=== PATIENT | female | born 1985 | race Caucasian/White ===

== ENCOUNTER 2020-07-21 13:49 | Outpatient (REF) | payer OTHER, SELFPAY ==
[2020-07-22 12:30] LABS: BV Int Neg Control Negative (Negative); BV Int Pos Control Positive (Positive)
== END 2020-07-21 13:50 | disposition home or self-care (01) ==
LOC: HO.LAB 13:49
PROVIDERS: PCP Internal Medicine; Visit Provider Advanced Practice Midwife
DX: R10.2 Pelvic and perineal pain (principal); N94.10 Unspecified dyspareunia; N94.9 Unspecified condition associated with female genital organs and menstrual cycle; Z97.5 Presence of (intrauterine) contraceptive device
CPT/HCPCS: 87480; 87510; 87660

== ENCOUNTER 2020-07-26 15:31 | Outpatient (REF) | payer OTHER, SELFPAY ==
--- NOTE | 2020-07-26 15:44 | US_ITS ---
EXAMINATION: PELVIC ULTRASOUND CLINICAL INFORMATION: Pelvic and perineal pain COMPARISON: Previous pelvic ultrasound June 2018 TECHNIQUE: Transabdominal and transvaginal pelvic ultrasound was performed. Transvaginal exam was performed for better visualization of the uterus and ovaries. FINDINGS: The uterus is anteverted and measures 10.2 x 3.8 x 4.3 cm. There is an IUD in the uterus in satisfactory position. Endometrial thickness is normal estimated at 0.5 cm. No focal uterine lesion is seen. The cervix is normal appearing. The right ovary is slightly enlarged measuring 4.3 x 2.5 x 2.6 cm, volume 15 mL. There is a 2.5 x 1.6 x 2 cm simple right ovarian cyst. The left ovary is normal and measures 3.6 x 1.5 x 3 cm. There is no fluid in the pelvis. US/US transvaginal IMPRESSION: IUD in the uterus in satisfactory position. 2.5 x 1.6 x 2 cm simple right ovarian cyst.
--- NOTE | 2020-07-26 15:44 | US_ITS ---
EXAMINATION: PELVIC ULTRASOUND CLINICAL INFORMATION: Pelvic and perineal pain COMPARISON: Previous pelvic ultrasound June 2018 TECHNIQUE: Transabdominal and transvaginal pelvic ultrasound was performed. Transvaginal exam was performed for better visualization of the uterus and ovaries. FINDINGS: The uterus is anteverted and measures 10.2 x 3.8 x 4.3 cm. There is an IUD in the uterus in satisfactory position. Endometrial thickness is normal estimated at 0.5 cm. No focal uterine lesion is seen. The cervix is normal appearing. The right ovary is slightly enlarged measuring 4.3 x 2.5 x 2.6 cm, volume 15 mL. There is a 2.5 x 1.6 x 2 cm simple right ovarian cyst. The left ovary is normal and measures 3.6 x 1.5 x 3 cm. There is no fluid in the pelvis. US/US pelvic complete IMPRESSION: IUD in the uterus in satisfactory position. 2.5 x 1.6 x 2 cm simple right ovarian cyst.
== END 2020-07-26 15:32 | disposition home or self-care (01) ==
LOC: HO.US 15:31
PROVIDERS: PCP Internal Medicine; Visit Provider Advanced Practice Midwife
DX: R10.2 Pelvic and perineal pain (principal); R10.12 Left upper quadrant pain
CPT/HCPCS: 76830; 76856

== ENCOUNTER → 2020-08-02 10:01 | Outpatient (BNVA) | payer OTHER, SELFPAY | PROVIDERS: Visit Provider Advanced Practice Midwife | DX: Z76.89 Persons encountering health services in other specified circumstances (principal) ==

== ENCOUNTER → 2020-12-20 15:55 | Outpatient (BNVA) | payer OTHER, SELFPAY | PROVIDERS: PCP Internal Medicine; Visit Provider Advanced Practice Midwife ==

== ENCOUNTER 2021-06-28 09:23 | Outpatient (REF) | payer OTHER, SELFPAY ==
[2021-06-28 15:46] LABS: CT PCR NOT DETECTED (Not Detect.); NG PCR NOT DETECTED (Not Detect.)
[2021-06-29 09:29] LABS: BV Int Neg Control Negative (Negative); BV Int Pos Control Positive (Positive)
[2021-07-03 15:56] LABS: HPV mRNA E6/E7 rflx Not Detected (Not Detected)
== END 2021-06-28 09:24 | disposition home or self-care (01) ==
LOC: HO.LAB 09:23
PROVIDERS: PCP Internal Medicine; Visit Provider Advanced Practice Midwife
DX: Z01.411 Encounter for gynecological examination (general) (routine) with abnormal findings (principal); Z11.51 Encounter for screening for human papillomavirus (HPV); N94.10 Unspecified dyspareunia; R10.2 Pelvic and perineal pain; N89.8 Other specified noninflammatory disorders of vagina
CPT/HCPCS: 81003; 87480; 87491; 87510; 87591; 87624; 87660; 88142

== ENCOUNTER 2021-07-16 12:54 | Outpatient (REF) | payer OTHER, SELFPAY ==
--- NOTE | ~2021-07-16 | US_ITS ---
EXAMINATION: US PELVIS CLINICAL INFORMATION: Pelvic/perineal pain. COMPARISON: Pelvic ultrasound dated 07/18/2020. TECHNIQUE: Ultrasound of the pelvis is performed using both transabdominal and transvaginal transducers along with Doppler. Transvaginal imaging is performed due to inadequate visualization transabdominally. FINDINGS: Uterus: Anteverted/anteflexed measuring 9.0 x 3.6 x 4.7 cm. The endometrial stripe measures up to 0.3 cm at the level the fundus. An echogenic IUD is seen within the endometrial canal extending to the level the fundus without abnormality. A small anechoic cyst adjacent to the IUD on the right measures 0.5 x 0.4 x 0.4 cm. Color Doppler showed no abnormal vascular flow. The cervix is closed minimal anechoic fluid distally towards the external os. A small nabothian cyst is noted. Right ovary: 3.3 x 2.2 x 2.5 cm with a volume of 10 mL. Color Doppler showed no abnormal vascular flow. Left ovary: 4.5 x 3.1 x 4.2 cm with a volume of 31 mL. An anechoic cyst measures 3.2 cm. Color Doppler showed no abnormal vascular flow. US/US pelvic and transvaginal IMPRESSION: 1. IUD appears in good position without abnormality. A small adjacent anechoic cyst is nonspecific, but demonstrates benign features and may be physiologic. Correlation with beta-hCG levels recommended as an early gestational sac cannot be completely excluded. 2. Small left ovarian cyst demonstrates overall benign features and is likely physiologic.
== END 2021-07-16 12:55 | disposition home or self-care (01) ==
LOC: HO.US 12:54
PROVIDERS: PCP Internal Medicine; Visit Provider Advanced Practice Midwife
DX: R10.2 Pelvic and perineal pain (principal); G89.29 Other chronic pain
CPT/HCPCS: 76830; 76856

== ENCOUNTER 2021-07-17 12:53 | Outpatient (REF) | payer OTHER, SELFPAY ==
[2021-07-17 14:02] LABS: HCG Quantitative < 2 mIU/mL
== END 2021-07-17 12:54 | disposition home or self-care (01) ==
LOC: HO.LAB 12:53
PROVIDERS: PCP Internal Medicine; Visit Provider Advanced Practice Midwife
DX: N85.8 Other specified noninflammatory disorders of uterus (principal)
CPT/HCPCS: 36415; 84702

== ENCOUNTER 2021-07-23 08:19 | Outpatient (REF) | payer OTHER, SELFPAY ==
--- NOTE | ~2021-07-23 | MM_ITS ---
EXAMINATION: MM SCREENING DIGITAL BREAST TOMOSYNTHESIS, BILATERAL CLINICAL INFORMATION: Screening. Asymptomatic. Age 35. No prior breast imaging. Prior history right lateral breast reduction surgery. Family history breast cancer, mother age 30s. The lifetime risk of breast cancer based on the Tyrer-Cuzick Model is 15%. COMPARISON: None (current study represents initial baseline exam). TECHNIQUE: Digital breast tomosynthesis is performed in both the craniocaudal and mediolateral oblique views along with computer-aided detection (CAD). Synthesized 2D images are generated from the tomosynthesis. FINDINGS: There are scattered areas of fibroglandular density (ACR BI-RADS breast composition Category b). Parenchymal pattern is consistent with the history of bilateral reduction mammoplasty. There is minor bilateral scarring with scattered benign round calcifications bilaterally anterior breasts, many likely dermal. There is no mass or architectural abnormality or abnormal calcifications. The axilla are unremarkable. MM/MM tomosynthesis screening BI IMPRESSION: No mammographic evidence of malignancy. ASSESSMENT: BI-RADS 2: Benign RECOMMENDATION: Routine annual mammography screening. This patient's information was entered into a reminder system with a target due date for their next mammogram.
== END 2021-07-23 08:20 | disposition home or self-care (01) ==
LOC: HO.MAMMO 08:19
PROVIDERS: PCP Internal Medicine; Visit Provider Obstetrics & Gynecology
DX: Z12.31 Encounter for screening mammogram for malignant neoplasm of breast (principal)
CPT/HCPCS: 77063; 77067

== ENCOUNTER → 2021-07-24 15:35 | Outpatient (BNVA) | payer OTHER, SELFPAY | PROVIDERS: Visit Provider Advanced Practice Midwife ==

== ENCOUNTER → 2021-07-25 08:36 | Outpatient (BNVA) | payer OTHER, SELFPAY | PROVIDERS: PCP Internal Medicine; Visit Provider Obstetrics & Gynecology ==

== ENCOUNTER 2022-07-24 09:20 | Outpatient (REF) | payer OTHER, SELFPAY ==
--- NOTE | ~2022-07-24 | MM_ITS ---
EXAMINATION: MM SCREENING DIGITAL BREAST TOMOSYNTHESIS, BILATERAL CLINICAL INFORMATION: Screening. Asymptomatic. Prior history reduction mammoplasty. Family history premenopausal breast cancer, mother, age 30s; ovarian cancer, sister. The lifetime risk of breast cancer based on the Tyrer-Cuzick Model is 20%. COMPARISON: Mammography: 07/23/2021 (baseline) TECHNIQUE: Digital breast tomosynthesis is performed in both the craniocaudal and mediolateral oblique views along with computer-aided detection (CAD). Synthesized 2D images are generated from the tomosynthesis. FINDINGS: There are scattered areas of fibroglandular density (ACR BI-RADS breast composition Category b). There are no significant masses, abnormal calcifications, or other abnormalities. Parenchymal pattern is similar to baseline exam. Again, there are some scattered benign round calcifications and dermal calcifications predominantly anterior breasts. The axilla and skin contours are unremarkable. No significant changes. MM/MM tomosynthesis screening BI IMPRESSION: No mammographic evidence of malignancy. ASSESSMENT: BI-RADS 2: Benign RECOMMENDATION: Routine annual mammography screening. This patient's information was entered into a reminder system with a target due date for their next mammogram.
== END 2022-07-24 09:21 | disposition home or self-care (01) ==
LOC: HO.MAMMO 09:20
PROVIDERS: Visit Provider Obstetrics & Gynecology
DX: Z12.31 Encounter for screening mammogram for malignant neoplasm of breast (principal)
CPT/HCPCS: 77063; 77067

== ENCOUNTER 2022-11-06 13:28 | Outpatient (REF) | payer OTHER, SELFPAY ==
--- NOTE | ~2022-11-06 | US_ITS ---
EXAMINATION: US PELVIS CLINICAL INFORMATION: Pelvic and perineal pain, IUD check. COMPARISON: Ultrasound of the pelvis 07/16/2021. TECHNIQUE: Ultrasound of the pelvis is performed using both transabdominal and transvaginal transducers along with Doppler. Transvaginal imaging is performed due to inadequate visualization transabdominally. FINDINGS: UTERUS: The uterus is anteverted and measures 9.7 x 3.9 x 4.0 cm. The double wall endometrial thickness is 0.3 mm. An IUD is present in the correct position. There is a small 5 x 5 x 4 mm cyst seen in, or immediately adjacent to, the endometrial cavity. An identical finding was seen on the 07/16/2021 study. No solid masses are seen. Nabothian cysts are present in the cervix. The uterus is smooth in contour and has normal myometrial echogenicity. No visible fibroid. ADNEXA: Both ovaries are visualized. There is normal color flow to the adnexa. There is no ovarian torsion. There is no pelvic ascites or fluid collection. Right ovary measures: 2.4 x 1.7 x 2.2 cm for a volume of 4.7 mL. Left ovary measures: 5.0 x 3.2 x 2.8 cm for a volume of 23.5 mL, which includes a 3.5 x 2.1 x 2.4 cm benign simple cyst. A follow-up pelvic ultrasound in 3 months is recommended for further evaluation. US/US pelvic and transvaginal IMPRESSION: 1. An IUD is present and in the correct position. 2. There is a 5 mm cyst in the endometrium, or adjacent to the endometrium, unchanged from 07/16/2021. 3. Benign simple left ovarian cyst needs no further follow up.
== END 2022-11-06 13:29 | disposition home or self-care (01) ==
LOC: HO.US 13:28
PROVIDERS: Visit Provider Advanced Practice Midwife
DX: R10.2 Pelvic and perineal pain (principal)
CPT/HCPCS: 76830; 76856

== ENCOUNTER → 2022-11-14 15:41 | Outpatient (BNVA) | payer OTHER, SELFPAY | PROVIDERS: PCP Internal Medicine; Visit Provider Advanced Practice Midwife | DX: Z13.89 Encounter for screening for other disorder (principal) ==

== ENCOUNTER 2023-07-28 10:26 | Outpatient (REF) | payer OTHER, SELFPAY | END 2023-07-28 10:27 | disposition home or self-care (01) | LOC: HO.MAMMO 10:26 | PROVIDERS: PCP Internal Medicine; Visit Provider Internal Medicine | DX: Z12.31 Encounter for screening mammogram for malignant neoplasm of breast (principal) | CPT/HCPCS: 77063; 77067 ==

== ENCOUNTER → 2023-07-28 10:30 | Outpatient (BNV) | payer OTHER, SELFPAY | PROVIDERS: PCP Internal Medicine; Visit Provider Radiology Diagnostic Radiology | DX: Z12.31 Encounter for screening mammogram for malignant neoplasm of breast (principal) | CPT/HCPCS: 77063; 77067 ==

== ENCOUNTER 2023-09-25 11:09 | Outpatient (REF) | payer OTHER, SELFPAY ==
[2023-09-26 15:23] LABS: BV Int Neg Control Negative (Negative); BV Int Pos Control Positive (Positive)
== END 2023-09-25 11:10 | disposition home or self-care (01) ==
LOC: HO.LNP 11:09
PROVIDERS: PCP Internal Medicine; Visit Provider Advanced Practice Midwife
DX: N89.8 Other specified noninflammatory disorders of vagina (principal)
CPT/HCPCS: 87480; 87510; 87660

== ENCOUNTER 2023-09-25 11:09 | Outpatient (AMB) | payer OTHER, SELFPAY ==
--- NOTE | 2023-09-25 11:16 | A.OFFVIS_ITS ---
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 Doing well with no concerns. She tries to eat healthy and stays active with exercise. No regular menses with the Mirena. Inserted at [facility], uncertain of date of insertion, used for cycle control. Currently is sexually active. She denies vaginal itching and irritation. History of sensitivity of the skin has tried different products currently using Andreina daily to help with her sensitivity. 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 STI screening offered; she declined. Family history of female cancer, declines interest in BRCA testing. Last pap smear 2020, negative. 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 Sexual orientation: Straight/Heterosexual Gender identity: Female Female Reproductive History Menstrual Age of Menarche: 10 control method: progestin IUCD and other (vasectomy) Total pregnancies: 4 Number of Living Children: 3 Date of last pap smear: 06/28/21 Review of Systems Const All systems reviewed & are unremarkable except as noted in HPI and below Reports as per HPI Eyes Reports no additional complaints ENT Reports no additional complaints Card Reports no additional complaints Resp Reports no additional complaints GI Reports as per HPI and Reports no additional complaints Reports as per HPI Musc Reports no additional complaints Skin/Breast Reports as per HPI Neuro Reports no additional complaints Psych Reports no additional complaints Endo Reports no additional complaints Vahid/Lymph Reports no additional complaints Aller/Immun Reports no additional complaints Physical Exam Vital Signs: Last Vital Signs BP 108/62 09/25/23 11:20 BMI result Body Mass Index 36.4 Const General: cooperative, healthy appearing, no acute distress, well developed and alert Orientation/consciousness: patient oriented x3 HEENT Head: Yes normal to inspection Eyes General: appearance normal, both eyes and all related structures Neck Neck: Yes normal visual inspection Thyroid: Thyroid normal Chest Chest palpation & inspection: normal inspection of the chest and other (no puckering, dimpling, peau de orange, retraction, discharge, masses) Breast/axilla inspection: normal inspection of the breasts Breast/axilla palpation: normal palpation of the breasts Resp Effort & Inspection: normal respiratory effort GI Inspection: Yes normal to inspection Palpation (GI): Soft to palpation Rectal Exam - Female: deferred General: Yes bladder normal to palpation External Female Exam: normal external appearance and normal appearance of the urethra Speculum Exam - Vagina: normal appearance of the vagina, normal palpation and normal vaginal discharge Speculum Exam - Cervix: normal appearance of the cervix, normal palpation and Other cervical findings present (IUD strings present ) Bimanual exam- vagina & uterus: normal bimanual exam, normal palpation, uterine size normal, bladder normal to palpation, normal palpation and non-tender Bimanual Exam- Adnexa, other: no masses Skin General skin exam: no rashes or lesions noted Rashes: no rashes Neuro General: patient oriented x3 Cognition (Neuro): normal cognition Extrem General: Yes normal to inspection Psych Attitude: cooperative Thought process: Normal thought process present Assessment & Plan Assessment & Plan (1) Encounter for well woman exam with routine gynecological exam: Code(s): Z01.419 - Encounter for gynecological examination (general) (routine) without abnormal findings Plan Discussed: Current recommendations for pap smears per ASCCP guidelines. Breast awareness and periodic breast exams. Maintain a healthy lifestyle including a well balanced diet and routine exercise. Release of records to [facility] for nitroglycerin supervisor notes. Different products for skin care such as baby soap unscented an organic all natural. Yearly mammograms due to family history. All of her questions and concerns were addressed to the best of my ability. RTO in one year for annual nitroglycerin supervisor examination. This note is constructed using voice recognition software. While every effort has been made to ensure accuracy, assistant import manager errors may have been included. Orders: Orders Bacterial Vaginosis Panel Today N89.8 - Other specified noninflammatory disorders of vagina Coding Level of Care Code Est Pt Prev Care 18-39y(70538) Diagnoses Encounter for well woman exam with routine gynecological exam Z01.419
[2023-09-25 11:20] VITALS: BP 108/62; BMI 36.4
== END 2023-09-25 11:50 | disposition home or self-care (01) ==
PROVIDERS: PCP Internal Medicine; Visit Provider Advanced Practice Midwife
DX: Z01.419 Encounter for gynecological examination (general) (routine) without abnormal findings (principal)
CPT/HCPCS: 99395

== ENCOUNTER → 2024-08-02 09:30 | Outpatient (BNV) | payer OTHER, SELFPAY | PROVIDERS: PCP Internal Medicine; Visit Provider Internal Medicine | DX: Z12.31 Encounter for screening mammogram for malignant neoplasm of breast (principal) | CPT/HCPCS: 77063; 77067 ==

== ENCOUNTER 2024-08-02 09:32 | Outpatient (REF) | payer OTHER, SELFPAY ==
--- NOTE | ~2024-08-02 | MM_ITS ---
EXAMINATION: MM SCREENING DIGITAL BREAST TOMOSYNTHESIS, BILATERAL CLINICAL INFORMATION: Screening. Asymptomatic. COMPARISON: Mammography: Comparison is made with available priors TECHNIQUE: Digital breast mammography with tomosynthesis is performed in both the craniocaudal and mediolateral oblique views along with computer-aided detection (CAD). FINDINGS: The breasts are heterogeneously dense, which may obscure small masses (ACR BI-RADS breast composition Category c). Bilateral reduction mammoplasty. There are no significant masses, abnormal calcifications, or other abnormalities. MM/MM tomosynthesis screening BI IMPRESSION: No mammographic evidence of malignancy. ASSESSMENT: BI-RADS BI-RADS 2 - Benign Findings RECOMMENDATION: Routine annual mammography screening. 1 year F/U This examination should not preclude the clinical evaluation of a suspicious palpable abnormality. This patient's information was entered into a reminder system with a target due date for their next mammogram. Electronically signed by: Joy St DO 08/10/2024 10:37 AM TIMOTHY
== END 2024-08-02 09:33 | disposition home or self-care (01) ==
LOC: HO.MAMMO 09:32
PROVIDERS: PCP Internal Medicine; Visit Provider Internal Medicine
DX: Z12.31 Encounter for screening mammogram for malignant neoplasm of breast (principal)
CPT/HCPCS: 77063; 77067

== ENCOUNTER 2024-10-06 10:10 | Outpatient (AMB) | payer OTHER, SELFPAY ==
--- NOTE | 2024-10-06 10:11 | A.OFFVIS_ITS ---
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 Doing well with board layer concerns. Mirena IUD in place since to 2016 due for an exchange this summer. Currently is sexually active. She denies vaginal itching and irritation. STI screening offered; she declined. She tries to eat healthy and stays active with exercise. Currently taking weight loss medication. Denies family history of breast, ovarian or colon cancer. Last pap smear 2020, negative. Mammogram: 2023. 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 Sexual orientation: Straight/Heterosexual Gender identity: Female Female Reproductive History Menstrual Age of Menarche: 10 control method: progestin IUCD (Mirena 04/15/17) and other (vasectomy) Total pregnancies: 4 Full term: 3 Number of Living Children: 3 Date of last pap smear: 06/28/21 (neg pap and hpv) Date of Mammogram: 08/02/24 (Bir[facility] 1) Review of Systems Const All systems reviewed & are unremarkable except as noted in HPI and below Reports as per HPI Eyes Reports no additional complaints ENT Reports no additional complaints Card Reports no additional complaints Resp Reports no additional complaints GI Reports as per HPI and Reports no additional complaints Reports as per HPI Musc Reports no additional complaints Skin/Breast Reports as per HPI Neuro Reports no additional complaints Psych Reports no additional complaints Endo Reports no additional complaints Vahid/Lymph Reports no additional complaints Aller/Immun Reports no additional complaints Physical Exam Vital Signs: Last Vital Signs BP 100/66 10/06/24 10:13 BMI result Body Mass Index 35.0 Const General: cooperative, healthy appearing, no acute distress, well developed and alert Orientation/consciousness: patient oriented x3 HEENT Head: Yes normal to inspection Eyes General: appearance normal, both eyes and all related structures Neck Neck: Yes normal visual inspection Thyroid: Thyroid normal Chest Other: Breast reconstruction scarring Chest palpation & inspection: normal inspection of the chest and other (no puckering, dimpling, peau de orange, retraction, discharge, masses) Breast/axilla inspection: normal inspection of the breasts Breast/axilla palpation: normal palpation of the breasts Resp Effort & Inspection: normal respiratory effort GI Inspection: Yes normal to inspection and Yes scar Palpation (GI): Soft to palpation Rectal Exam - Female: deferred General: Yes bladder normal to palpation External Female Exam: normal external appearance and normal appearance of the urethra Speculum Exam - Vagina: normal appearance of the vagina, normal palpation and normal vaginal discharge Speculum Exam - Cervix: normal appearance of the cervix, normal palpation and Other cervical findings present (IUD strings at the os) Bimanual exam- vagina & uterus: normal bimanual exam, normal palpation, uterine size normal, bladder normal to palpation, normal palpation, non-tender and enlarged Bimanual Exam- Adnexa, other: no masses Skin General skin exam: no rashes or lesions noted Rashes: no rashes Neuro General: patient oriented x3 Cognition (Neuro): normal cognition Extrem General: Yes normal to inspection Psych Attitude: cooperative Thought process: Normal thought process present Assessment & Plan Assessment & Plan (1) Encounter for well woman exam with routine gynecological exam: Code(s): Z01.419 - Encounter for gynecological examination (general) (routine) without abnormal findings Category: Medical (2) Encounter for annual routine gynecological examination: Code(s): Z01.419 - Encounter for gynecological examination (general) (routine) without abnormal findings Category: Medical (3) FH: breast cancer in first degree relative: Code(s): Z80.3 - Family history of malignant neoplasm of breast Category: Medical Plan Discussed: Current recommendations for pap smears per ASCCP guidelines. Breast awareness and periodic breast exams. Mammogram yearly. Maintain a healthy lifestyle including a well balanced diet and routine exercise. Schedule Mirena exchange in February per patient request on time line. Discussed risk factors for breast cancer she would like to proceed with BRCA testing. Referral placed. Patient verbalizes understanding and agrees to the plan of care. She was given opportunity to ask questions and all questions were answered to the best of my ability. RTO in one year for annual board layer examination. This note is constructed using voice recognition software. While every effort has been made to ensure accuracy, lens blank gauger errors may have been included. Orders: Referrals Breast Surgery Referral Z80.3 - Family history of malignant neoplasm of breast Coding Level of Care Code Est Pt Prev Care 40-64y(55262) Diagnoses Encounter for well woman exam with routine gynecological exam Z01.419 Encounter for annual routine gynecological examination Z01.419 FH: breast cancer in first degree relative Z80.3
[2024-10-06 10:13] VITALS: BP 100/66; BMI 35.0
--- OUTSIDE RECORDS SUMMARY | 2024-10-06 10:25 | XMS_ITS ---
Author Organization [facility] Address [address] [place] [address] Care Team Providers Care Teacher Of The Emotionally Disturbed Name Role Phone EDITH, ROSY Unavailable [phone] REASON FOR VISIT Zepbound PA Encounters Encounter Location Date Provider Diagnosis [facility] [address] [place] [address] 09/30/2024 ROSY SHARMA PLAN OF TREATMENT Next Appt Details Provider Name:ROSY SHARMA, 11/08/2024 10:45:00 AM, [address], [place], [address], Progress Notes * Colton HERNÁNDEZOB:1985 (39 yo F)Acc No.[id number]:09/30/2024 Patient:??JONELJorgelore :1985?Age:39 Y?Sex:Fe male Address:[address] [place] [id number] * true * Date:??
--- OUTSIDE RECORDS SUMMARY | 2024-10-06 10:25 | XMS_ITS ---
Author Organization [facility] Address [address] [place] [address] Care Team Providers Care Dba Developer Name Role Phone ROSY SHARMA Unavailable [phone] ALLERGIES Allergen (clinical drug ingredient) Drug/Non Drug Allergy documented on EMR Reaction Allergy Type Onset Date Status Seafood seafood (uncoded) hives Allergy Ac tive REASON FOR VISIT pt is here for 8 week weight management f/u-seca done pt states she is having horrible diarrhea andstomach pain on wegovy 1.7 pt would to discuss going back down to 1mg MEDICATIONS Medication SIG (Take, Route, Frequency, Duration) Notes Start Date End Date Status Zepbound 5 MG/0.5ML 0.5 mL Subcutaneous weekly for 30 days 09/30/2024 Active Ondansetron HCl 4 MG 1 tablet Orally twi ce a day for 10 days 08/10/2024 Active Wegovy 1.7 MG/0.75ML 0.75 mL Subcutaneou s weekly for 30 days 08/10/2024 Active Mirena (52 MG) 20 MCG/DAY as directed Intrauterine OBGYN 2020 [employer] [facility] SOCIAL HISTORY Tobacco Use: Social History Observation Description Date Details (start date - stop date) Never Smoker NA - NA Sex Assigned At : Social History Observation Description Sex Assigned At Unknown Tobacco Use/Smoking Question Answer Notes Are you a nonsmoker VITAL SIGNS Heart Rate 104 /min 09/30/2024 Blood pressure systolic 116 mm Hg 09/30/19 25 Blood pressure diastolic 80 mm Hg 025 Weight 204.4 lbs 09/30/2024 BMI 35.08 kg/m2 09/30/2024 Height 64 in 09/30/2024 Oximetry 95 % 09/30/2024 Encounters Encounter Location Date Provider Diagnosis [facility] [address] [place] [address] 09/30/2024 ROSY SHARMA Obesity (BMI 30-39.9 ) E66.9 ; BMI 35.0-35.9,adult Z68.35 and Prediabetes R73.03 ASSESSMENTS Encounter Date Diagnosis Assessment Notes Treatment Notes Treatment Clinical Notes Section Notes 09/30/2024 Obesity (BMI 30-39.9) (ICD-10 - E66.9) 02/18/2023: weight 214.2 lbs, BMI 36.76-- Bassam is a 37 year old female following up for weight management. She was previously denied Ozempic but is still interested in adjunctive therapy so will prescribe for Wegovy 0.25mg. If she is denied this medication, she is also interested in phentermine after education, and she has already been screened with EKG last visit which was WNL. Her lifestyle modifcations were reviewed, and most aspects have been challenging due to increased stress at work. She was encouraged to find ways to make time for herself and try to decrease stress as the main goal of this next month. Her SECA results showed good progress in losing fat mass and visceral adipose tissue, and she had no questions with explanation of results. She will follow up in 4 weeks. 04/27/24: BMI 37, Weight 216. Redisucssed protein intake, water intake, life style changes. Body composition scale was reviewed at [facility]. Labs will need to be ordered. 06/15/23: BMI 37 Weight 216. Completed Wegovy 0.25 mg x 8 weeks. Increase to Wegovy 0.5 mg subcu weekly. Gained 2 lb of muscle, lost 2 lb of fat. 07/13/24: Wt: 209.1 lbs, BMI: 35.89 Patient currently on Wegovy 0.5 mg injections. States that she does have an improvement in appetite suppression, but still gets hungry at times. Denies any other side effects. States that she has been eating well-balanced meals including high-protein and limiting carbs such as rice and beans. Discussed SECA scan results including 1 lbs muscle gain as well as 7 lbs fat loss. States for exercise she has increased activity by walking daily. Plan to increase Wegovy to 1 mg injections weekly to inadequate appetite suppression. 08/10/24: BMI 36, Weight 209. Increase to Wegovy 1.7 mg subcu weekly. Diet discussed as well as resistance training, 09/30/24: BMI 35, Weight 204. Having significant GI side effects with diarrhea. Discussed options of attempting to lower dose back to Wegovy 1 mg or attempt change to Zepbound due to less s/e profile. Will attempt to change to Zepbound. Pt to stop Wegocy until we can obtain PA for Zepbound. BRAT diet. Imodium. COnsider labs if no improvement on Zepbound, including stool study, Case discussed with collaborating physician Isma who reviewed the assessment and plan. Chart, medications, labs, vital signs reviewed. Dictation was accomplished with the use of [employer] voice recognition software, prone to medical misidentifications and grammatical errors. This is unintentional and the practitioner does try to identify and correct these, but some could still be present. Please do not hesitate to contact practitioner for clarification. All questions answered to patients satisfaction. Patient verbalized understanding of diagnosis and treatments explained. To call sooner prior to next visit it any questions/concerns arise. 09/30/2024 BMI 35.0-35.9,adul t (ICD-10 - Z68.35) 02/18/2023: weight 214.2 lbs, BMI 36.76-- Bassam is a 37 year old female following up for weight management. She was previously denied Ozempic but is still interested in adjunctive therapy so will prescribe for Wegovy 0.25mg. If she is denied this medication, she is also interested in phentermine after education, and she has already been screened with EKG last visit which was WNL. Her lifestyle modifcations were reviewed, and most aspects have been challenging due to increased stress at work. She was encouraged to find ways to make time for herself and try to decrease stress as the main goal of this next month. Her SECA results showed good progress in losing fat mass and visceral adipose tissue, and she had no questions with explanation of results. She will follow up in 4 weeks. 04/27/24: BMI 37, Weight 216. Redisucssed protein intake, water intake, life style changes. Body composition scale was reviewed at [facility]. Labs will need to be ordered. 06/15/23: BMI 37 Weight 216. Completed Wegovy 0.25 mg x 8 weeks. Increase to Wegovy 0.5 mg subcu weekly. Gained 2 lb of muscle, lost 2 lb of fat. 07/13/24: Wt: 209.1 lbs, BMI: 35.89 Patient currently on Wegovy 0.5 mg injections. States that she does have an improvement in appetite suppression, but still gets hungry at times. Denies any other side effects. States that she has been eating well-balanced meals including high-protein and limiting carbs such as rice and beans. Discussed SECA scan results including 1 lbs muscle gain as well as 7 lbs fat loss. States for exercise she has increased activity by walking daily. Plan to increase Wegovy to 1 mg injections weekly to inadequate appetite suppression. 08/10/24: BMI 36, Weight 209. Increase to Wegovy 1.7 mg subcu weekly. Diet discussed as well as resistance training, 09/30/24: BMI 35, Weight 204. Having significant GI side effects with diarrhea. Discussed options of attempting to lower dose back to Wegovy 1 mg or attempt change to Zepbound due to less s/e profile. Will attempt to change to Zepbound. Pt to stop Wegocy until we can obtain PA for Zepbound. BRAT diet. Imodium. COnsider labs if no improvement on Zepbound, including stool study, Case discussed with collaborating physician Isma who reviewed the assessment and plan. Chart, medications, labs, vital signs reviewed. Dictation was accomplished with the use of [employer] voice recognition software, prone to medical misidentifications and grammatical errors. This is unintentional and the practitioner does try to identify and correct these, but some could still be present. Please do not hesitate to contact practitioner for clarification. All questions answered to patients satisfaction. Patient verbalized understanding of diagnosis and treatments explained. To call sooner prior to next visit it any questions/concerns arise. 09/30/2024 Prediabetes (ICD-10 - R73.03) 02/18/2023: weight 214.2 lbs, BMI 36.76-- Bassam is a 37 year old female following up for weight management. She was previously denied Ozempic but is still interested in adjunctive therapy so will prescribe for Wegovy 0.25mg. If she is denied this medication, she is also interested in phentermine after education, and she has already been screened with EKG last visit which was WNL. Her lifestyle modifcations were reviewed, and most aspects have been challenging due to increased stress at work. She was encouraged to find ways to make time for herself and try to decrease stress as the main goal of this next month. Her SECA results showed good progress in losing fat mass and visceral adipose tissue, and she had no questions with explanation of results. She will follow up in 4 weeks. 04/27/24: BMI 37, Weight 216. Redisucssed protein intake, water intake, life style changes. Body composition scale was reviewed at [facility]. Labs will need to be ordered. 06/15/23: BMI 37 Weight 216. Completed Wegovy 0.25 mg x 8 weeks. Increase to Wegovy 0.5 mg subcu weekly. Gained 2 lb of muscle, lost 2 lb of fat. 07/13/24: Wt: 209.1 lbs, BMI: 35.89 Patient currently on Wegovy 0.5 mg injections. States that she does have an improvement in appetite suppression, but still gets hungry at times. Denies any other side effects. States that she has been eating well-balanced meals including high-protein and limiting carbs such as rice and beans. Discussed SECA scan results including 1 lbs muscle gain as well as 7 lbs fat loss. States for exercise she has increased activity by walking daily. Plan to increase Wegovy to 1 mg injections weekly to inadequate appetite suppression. 08/10/24: BMI 36, Weight 209. Increase to Wegovy 1.7 mg subcu weekly. Diet discussed as well as resistance training, 09/30/24: BMI 35, Weight 204. Having significant GI side effects with diarrhea. Discussed options of attempting to lower dose back to Wegovy 1 mg or attempt change to Zepbound due to less s/e profile. Will attempt to change to Zepbound. Pt to stop Wegocy until we can obtain PA for Zepbound. BRAT diet. Imodium. COnsider labs if no improvement on Zepbound, including stool study, Case discussed with collaborating physician Isma who reviewed the assessment and plan. Chart, medications, labs, vital signs reviewed. Dictation was accomplished with the use of [employer] voice recognition software, prone to medical misidentifications and grammatical errors. This is unintentional and the practitioner does try to identify and correct these, but some could still be present. Please do not hesitate to contact practitioner for clarification. All questions answered to patients satisfaction. Patient verbalized understanding of diagnosis and treatments explained. To call sooner prior to next visit it any questions/concerns arise. PLAN OF TREATMENT Medication Medication Name Sig Start Date Stop Date Notes Zepbound 5 MG/0.5ML 0.5 mL Subcutaneous weekly for 30 days 09/30/2024 Ondansetron HCl 4 MG 1 tablet Orally twi ce a day for 10 days 08/10/2024 Next Appt Details Provider Name:ROSY SHARMA, 11/08/2024 10:45:00 AM, [address] [facility], [place], [address], Progress Notes * Elvia HERNÁNDEZEnocOB:1985 (39 yo F)Acc No.[id number]:09/30/2024 Patient:??Bassam HERNÁNDEZ Provider:??ROSY SHARMA PA-C :1985?Age:39 Y?Sex:Fe male Date:09/30/2024 Address:[address] [place], [place] [id number] Subjective: * Chief Complaints: * ?1. Pt is here for 8 we ek weight management f/u-seca done pt states she is having horrible diarrhea and stomach pain on wegovy 1.7 pt would to discuss going back down to 1mg. * HPI: ?Constitutional:? Bassam is a 39 year old female for weight management follow up. Patient currently on Wegovy 1.7 mg injections for the past 8 weeks. States that she has had appetite suppression but has been experiencing significant diarrhea. She states she is getting multiple episodes of loose, watery stool after she eats. Has used imodium, but reports it doesnt get better before next dose isdue. DEnies vomiting .SECA scan shows 6 lb decrease fat mass, maintained muscle mass. Denies any other side effects. She eats a well-balanced diet focusing on high-protein. She limits rice and beans in her diet. Limits carbohydrates. For activity she walks daily. Seca scan results discussed. ?Last visit weight: 209 lbs ?Todays Weight: 204 lbs,. * ROS:?General: no weight loss, fevers, chills, or body aches. ???Skin: no rashes, or skin color changes. ???HEENT: no headache, vision or hearing changes, no sore throat. ???Cardiovascular: no new swelling, chest pain, palpitations, or claudication. ???Respiratory: no SOB, difficulty breathing, cough, wheezing ???GI: no abdominal pain, N/V, diarrhea or constipation. ???: no difficulty urinating, no hematuria. ???MSK: no joint or muscle pain, no back pain, no muscle stiffness ???Endocrine: no polyphagia, polydipsia, or polyuria. ???Hematologic: no easy bruising or bleeding. ???Neurologic: no dizziness, loss of balance, numbness or tingling. ???Psych: no anxiety or depression. * Medical History:??Prediabete s, Obesity (BMI 30-39.9). * Surgical History:??Denies [employer] [facility] Surgical History. * Hospitalization/Major Diagno stic Procedure:??Denies Past Hospitalization. * Family History:??Father: dec eased 37 yrs, diagnosed with Other malignant neoplasm of unspecified site.??Mother: alive.??2 brother(s) , 2 sister(s) - healthy. 2 son(s) , 1 daughter(s) . .?? father passed from cancer 3 children. * Social History:?Tobacco Use:??Tobacco Use/Smoking??Are you a??nonsmoker.?? * Medications:??Taking Mirena (52 MG) 20 MCG/DAY Intrauterine Device as directed Intrauterine , Notes to Pharmacist: OBGYN 2020, Taking Wegovy 1.7 MG/0.75ML Solution Auto-injector 0.75 mL Subcutaneous weekly , Taking Ondansetron HCl 4 MG Tablet 1 tablet Orally twice a day As needed nausea, Discontinued Wegovy 1 MG/0.5ML Solution Auto-injector 0.5 mL Subcutaneous once weekly , Discontinued Wegovy 0.5 MG/0.5ML Solution Auto-injector 0.5 mL Subcutaneous weekly , Medication List reviewed and reconciled with the patient * Allergies:??Seafood: Hives. Objective: * Vitals:??HR:104/min, BP:116/ 80mm Hg, Wt:204.4lbs, BMI:35.08Index, Ht: 64 in, Oxygen sat %:95%. * Examination: ?General Examination: ?General: Well appearing F, well nourished, age appropriate in no acute distress. ?SKIN: Warm, dry intact. No rashes/lesions. ?HEENT: Normocephalic atraumatic. EOM intact. No nystagmus noted. PERRLA. No maxillary sinus tenderness. ?LUNGS: Clear to auscultation bilaterally, no wheezes, rales or rhonchi ?CARDIAC: Regular rate and rhythm, no murmurs, rubs or gallops. ?Abdomen: Soft, nontender, nondistended. No tenderness if all 4 quadrants. ?Extremities: Warm and well perfused. No edema noted. ?Neuro: CN II-XI grossly intact. Speaking in full sentences. Hearing intact. Assessment: * Assessment: 1.??Obesity (BMI 30-39.9) - E66.9 (Primary)??2.??BMI 35.0-35.9,adult - Z68.35??3.??Prediabetes - R73.03?? 02/18/2023: weight 214.2 lbs, BMI 36.76-- Bassam is a 37 year old female following up for weight management. She was previously denied Ozempic but is still interested in adjunctive therapy so will prescribe for Wegovy 0.25mg. If she is denied this medication, she is also interested in phentermine after education, and she has already been screened with EKG last visit which was WNL. Her lifestyle modifcations were reviewed, and most aspects have been challenging due to increased stress at work. She was encouraged to find ways to make time for herself and try to decrease stress as the main goal of this next month. Her SECA results showed good progress in losing fat mass and visceral adipose tissue, and she had no questions with explanation of results. She will follow up in 4 weeks. 04/27/24: BMI 37, Weight 216. Redisucssed protein intake, water intake, life style changes. Body composition scale was reviewed at [facility]. Labs will need to be ordered. 06/15/23: BMI 37 Weight 216. Completed Wegovy 0.25 mg x 8 weeks. Increase to Wegovy 0.5 mg subcu weekly. Gained 2 lb of muscle, lost 2 lb of fat. 07/13/24: Wt: 209.1 lbs, BMI: 35.89 Patient currently on Wegovy 0.5 mg injections. States that she does have an improvement in appetite suppression, but still gets hungry at times. Denies any other side effects. States that she has been eating well-balanced meals including high-protein and limiting carbs such as rice and beans. Discussed SECA scan results including 1 lbs muscle gain as well as 7 lbs fat loss. States for exercise she has increased activity by walking daily. Plan to increase Wegovy to 1 mg injections weekly to inadequate appetite suppression. 08/10/24: BMI 36, Weight 209. Increase to Wegovy 1.7 mg subcu weekly. Diet discussed as well as resistance training, 09/30/24: BMI 35, Weight 204. Having significant GI side effects with diarrhea. Discussed options of attempting to lower dose back to Wegovy 1 mg or attempt change to Zepbound due to less s/e profile. Will attempt to change to Zepbound. Pt to stop Wegocy until we can obtain PA for Zepbound. BRAT diet. Imodium. COnsider labs if no improvement on Zepbound, including stool study, Case discussed with collaborating physician Isma who reviewed the assessment and plan. Chart, medications, labs, vital signs reviewed. Dictation was accomplished with the use of [employer] voice recognition software, prone to medical misidentifications and grammatical errors. This is unintentional and the practitioner does try to identify and correct these, but some could still be present. Please do not hesitate to contact practitioner for clarification. All questions answered to patients satisfaction. Patient verbalized understanding of diagnosis and treatments explained. To call sooner prior to next visit it any questions/concerns arise. Plan: * Treatment: * Procedure Codes:??05107 P/M FOIL OPERATOR, INDIV 15 MIN * Images: Billing Information: * Visit Code:?? 27779 Office Visit, Est Pt., Level 4. * Procedure Codes:?? 59554 P/M FOIL OPERATOR, INDIV 15 MIN. * Sign off status: Completed true * Provider:??ROSY SHARMA PA-C Date:??10/2024 History and Physical Notes * HPI (History of Present Illness) Category Sub-Category Detail Notes Category Not es Constitutional Bassam is a 39 year old female for weight management follow up. Patient currently on Wegovy 1.7 mg injections for the past 8 weeks. States that she has had appetite suppression but has been experiencing significant diarrhea. She states she is getting multiple episodes of loose, watery stool after she eats. Has used imodium, but reports it doesnt get better before next dose isdue. DEnies vomiting .SECA scan shows 6 lb decrease fat mass, maintained muscle mass. Denies any other side effects. She eats a well-balanced diet focusing on high-protein. She limits rice and beans in her diet. Limits carbohydrates. For activity she walks daily. Seca scan results discussed. Last visit weight: 209 lbs Todays Weight: 204 lbs, Examination Category Sub-Category Detail Notes Category Not es General Examination General: Well appearing F, well nourished, age appropriate in no acute distress. SKIN: Warm, dry intact. No rashes/lesions. HEENT: Normocephalic atraumatic. EOM intact. No nystagmus noted. PERRLA. No maxillary sinus tenderness. LUNGS: Clear to auscultation bilaterally, no wheezes, rales or rhonchi CARDIAC: Regular rate and rhythm, no murmurs, rubs or gallops. Abdomen: Soft, nontender, nondistended. No tenderness if all 4 quadrants. Extremities: Warm and well perfused. No edema noted. Neuro: CN II-XI grossly intact. Speaking in full sentences. Hearing intact.
--- OUTSIDE RECORDS SUMMARY | 2024-10-06 10:26 | XMS_ITS ---
Author Organization [facility] Address [address] [place] [address] Care Team Providers Care Radiological Metallurgist Name Role Phone ROSY SHARMA Unavailable [phone] TEA VERMA Unavailable [phone] REASON FOR VISIT 4 week f/u Encounters Encounter Location Date Provider Diagnosis [facility] [address] [place] [address] 08/11/2024 TEA VERMA PLAN OF TREATMENT Next Appt Details Provider Name:ROSY SHARMA, 11/08/2024 10:45:00 AM, [address], [place], [address], Progress Notes * Elvia HERNÁNDEZEnocOB:1985 (39 yo F)Acc No.[id number]:08/11/2024 Patient:??Bassam HERNÁNDEZ Provider:??TEA VERMA PA-C :1985?Age:38 Y?Sex:Fe male Date:08/11/2024 Address:[address] [place] [address] Subjective: * Chief Complaints: * ?1. 4 week f/u. * Medical History:?? Objective: Assessment: Plan: * Treatment: * Images: Billing Information: * Visit Code:?? * Procedure Codes:?? * Sign off status: Pending * Provider:??TEA VERMA PA-C Date:??
--- OUTSIDE RECORDS SUMMARY | 2024-10-06 10:26 | XMS_ITS | Patient Health Record ---
Author Organization [facility] Address [address] [place] [address] Care Team Providers Care Store Operations Associate Name Role Phone ROSY SHARMA Unavailable [phone] TEA VERMA Unavailable [phone] ALLERGIES Allergen (clinical drug ingredient) Drug/Non Drug Allergy documented on EMR Reaction Allergy Type Onset Date Status Seafood seafood (uncoded) hives Allergy Ac tive REASON FOR REFERRAL No Information MEDICATIONS Medication SIG (Take, Route, Frequency, Duration) Notes Start Date End Date Status Zepbound 5 MG/0.5ML 0.5 mL Subcutaneous weekly for 30 days 09/30/2024 Active Ondansetron HCl 4 MG 1 tablet Orally twi ce a day for 10 days 08/10/2024 Active Mirena (52 MG) 20 MCG/DAY as directed Intrauterine OBGYN 2020 Act nile Wegovy 1.7 MG/0.75ML 0.75 mL Subcutaneou s weekly for 30 days 08/10/2024 Active SOCIAL HISTORY Tobacco Use: Social History Observation Description Date Details (start date - stop date) Never Smoker NA - NA Sex Assigned At : Social History Observation Description Sex Assigned At Unknown Tobacco Use/Smoking Question Answer Notes Are you a nonsmoker Alcohol Screen (Audit-C) Question Answer Notes Did you have a drink containing alcohol in the p ast year? No Points 0 Interpretation Negative PROBLEMS Problem Type ICD Code Onset Dates Problem Status W/U Status Risk SNOMED Code Notes Problem Adult general medical exam (Z00.00) Active confirmed Adult health examination (367720158) Problem Diabetes mellitus screening (Z13.1) Active confirmed Diabetes mellitus screening (342907782) Problem Obesity (BMI 30-39.9) (E66.9) Active confirmed Obesity (789764573) Problem BMI 37.0-37.9, adult (Z68.37) Active confirmed Obese class I I (84455293274226 5) Problem BMI 35.0-35.9,adult (Z68.35) Active confirmed 141671418 Problem BMI 36.0-36.9,adult (Z68.36) Active confirmed Obese class II (47469996866082 5) Problem Hypothyroid (E03.9) Active confirmed Hypothyroid (98054361) VITAL SIGNS Heart Rate 104 /min 09/30/2024 Oximetry 95 % 09/30/2024 Blood pressure diastolic 80 mm Hg 09/30/2024 Height 64 in 09/30/2024 Blood pressure systolic 116 mm Hg 09/30/2024 Weight 204.4 lbs 09/30/2024 BMI 35.08 kg/m2 09/30/2024 Encounters Encounter Location Date Provider Diagnosis [facility] [address] [place] [address] 08/11/2024 TEA LUCI [facility] [address] [place] [address] 04/27/2024 ROSY EDITH Obesity (BMI 30-39.9 ) E66.9 and BMI 37.0-37.9, adult Z68.37 [facility] [address] [place] [address] 06/15/2024 ROSY EDITH Obesity (BMI 30-39.9 ) E66.9 and BMI 37.0-37.9, adult Z68.37 [facility] [address] [place] [address] 07/13/2024 TEA LUCI Obesity (BMI 30-39.9 ) E66.9 ; BMI 35.0-35.9,adult Z68.35 and Prediabetes R73.03 [facility] [address] [place] [address] 08/10/2024 ROSY EDITH Obesity (BMI 30-39.9 ) E66.9 ; BMI 35.0-35.9,adult Z68.35 and Prediabetes R73.03 [facility] [address] [place] [address] 09/30/2024 ROSY EDITH Obesity (BMI 30-39.9 ) E66.9 ; BMI 35.0-35.9,adult Z68.35 and Prediabetes R73.03 [facility] [address] [address] 02/05/2024 ROSY EDITH [facility] [address] [place] [address] 09/30/2024 ROSY SHARMA ASSESSMENTS Encounter Date Diagnosis Assessment Notes Treatment Notes Treatment Clinical Notes Section Notes 04/27/2024 Obesity (BMI 30-39.9) (ICD-10 - E66.9) 02/18/2023: [...] changes. Body composition scale was reviewed at [facility]. Labs will need to be ordered. Case discussed with collaborating physician Jose Roman who reviewed the assessment and plan. Chart, medications, labs, vital signs reviewed. Dictation was accomplished with the use of [email or web address] voice recognition software, prone to medical misidentifications and grammatical errors. This is unintentional and the practitioner does try to identify and correct these, but some could still be present. Please do not hesitate to contact practitioner for clarification. All questions answered to patients satisfaction. Patient verbalized understanding of diagnosis and treatments explained. To call sooner prior to next visit it any questions/concerns arise. 04/27/2024 BMI 37.0-37.9, adult (ICD-10 - Z68.37) 02/18/2023: weight 214.2 lbs, BMI 36.76-- Bassam [...] changes. Body composition scale was reviewed at [facility]. Labs will need to be ordered. Case discussed with collaborating physician Jose Roman who reviewed the assessment and plan. Chart, medications, labs, vital signs reviewed. Dictation was accomplished with the use of [email or web address] voice recognition software, prone to medical misidentifications and grammatical errors. This is unintentional and the practitioner does try to identify and correct these, but some could still be present. Please do not hesitate to contact practitioner for clarification. All questions answered to patients satisfaction. Patient verbalized understanding of diagnosis and treatments explained. To call sooner prior to next visit it any questions/concerns arise. 06/15/2024 Obesity (BMI 30-39.9) (ICD-10 - E66.9) 02/18/2023: [...] changes. Body composition scale was reviewed at [facility]. Labs will need to be ordered. 06/15/23: BMI 37 Weight 216. Completed Wegovy 0.25 mg x 8 weeks. Increase to Wegovy 0.5 mg subcu weekly. Gained 2 lb of muscle, lost 2 lb of fat. Case discussed with collaborating physician Jose Roman who reviewed the assessment and plan. Chart, medications, labs, vital signs reviewed. Dictation was accomplished with the use of [email or web address] voice recognition software, prone to medical misidentifications and grammatical errors. This is unintentional and the practitioner does try to identify and correct these, but some could still be present. Please do not hesitate to contact practitioner for clarification. All questions answered to patients satisfaction. Patient verbalized understanding of diagnosis and treatments explained. To call sooner prior to next visit it any questions/concerns arise. 06/15/2024 BMI 37.0-37.9, adult (ICD-10 - Z68.37) 02/18/2023: weight 214.2 lbs, BMI 36.76-- Bassam [...] changes. Body composition scale was reviewed at [facility]. Labs will need to be ordered. 06/15/23: BMI 37 Weight 216. Completed Wegovy 0.25 mg x 8 weeks. Increase to Wegovy 0.5 mg subcu weekly. Gained 2 lb of muscle, lost 2 lb of fat. Case discussed with collaborating physician Jose Roman who reviewed the assessment and plan. Chart, medications, labs, vital signs reviewed. Dictation was accomplished with the use of [email or web address] voice recognition software, prone to medical misidentifications and grammatical errors. This is unintentional and the practitioner does try to identify and correct these, but some could still be present. Please do not hesitate to contact practitioner for clarification. All questions answered to patients satisfaction. Patient verbalized understanding of diagnosis and treatments explained. To call sooner prior to next visit it any questions/concerns arise. 07/13/2024 Obesity (BMI 30-39.9) (ICD-10 - E66.9) 02/18/2023: [...] changes. Body composition scale was reviewed at [facility]. Labs will need to be ordered. 06/15/23: [...] mg injections weekly to inadequate appetite suppression. Case discussed with collaborating physician Jose Roman who reviewed the assessment and plan. Chart, medications, labs, vital signs reviewed. Dictation was accomplished with the use of [email or web address] voice recognition software, prone to medical misidentifications and grammatical errors. This is unintentional and the practitioner does try to identify and correct these, but some could still be present. Please do not hesitate to contact practitioner for clarification. All questions answered to patients satisfaction. Patient verbalized understanding of diagnosis and treatments explained. To call sooner prior to next visit it any questions/concerns arise. 07/13/2024 BMI 35.0-35.9,adul t (ICD-10 - Z68.35) 02/18/2023: [...] changes. Body composition scale was reviewed at [facility]. Labs will need to be ordered. 06/15/23: [...] mg injections weekly to inadequate appetite suppression. Case discussed with collaborating physician Jose Roman who reviewed the assessment and plan. Chart, medications, labs, vital signs reviewed. Dictation was accomplished with the use of [email or web address] voice recognition software, prone to medical misidentifications and grammatical errors. This is unintentional and the practitioner does try to identify and correct these, but some could still be present. Please do not hesitate to contact practitioner for clarification. All questions answered to patients satisfaction. Patient verbalized understanding of diagnosis and treatments explained. To call sooner prior to next visit it any questions/concerns arise. 08/10/2024 Obesity (BMI 30-39.9) (ICD-10 - E66.9) 02/18/2023: [...] changes. Body composition scale was reviewed at [facility]. Labs will need to be ordered. 06/15/23: [...] Diet discussed as well as resistance training, Case discussed with collaborating physician Isma who reviewed the assessment and plan. Chart, medications, labs, vital signs reviewed. Dictation was accomplished with the use of [email or web address] voice recognition software, prone to medical misidentifications and grammatical errors. This is unintentional and the practitioner does try to identify and correct these, but some could still be present. Please do not hesitate to contact practitioner for clarification. All questions answered to patients satisfaction. Patient verbalized understanding of diagnosis and treatments explained. To call sooner prior to next visit it any questions/concerns arise. 08/10/2024 BMI 35.0-35.9,adul t (ICD-10 - Z68.35) 02/18/2023: [...] changes. Body composition scale was reviewed at [facility]. Labs will need to be ordered. 06/15/23: [...] Diet discussed as well as resistance training, Case discussed with collaborating physician Isma who reviewed the assessment and plan. Chart, medications, labs, vital signs reviewed. Dictation was accomplished with the use of [email or web address] voice recognition software, prone to medical misidentifications [...] next visit it any questions/concerns arise. 09/30/2024 Obesity (BMI 30-39.9) (ICD-10 - E66.9) [...] changes. Body composition scale was reviewed at [facility]. Labs will need to be ordered. 06/15/23: [...] Dictation was accomplished with the use of [email or web address] voice recognition software, prone to medical misidentifications [...] changes. Body composition scale was reviewed at [facility]. Labs will need to be ordered. 06/15/23: [...] Dictation was accomplished with the use of [email or web address] voice recognition software, prone to medical misidentifications [...] changes. Body composition scale was reviewed at [facility]. Labs will need to be ordered. 06/15/23: [...] Dictation was accomplished with the use of [email or web address] voice recognition software, prone to medical misidentifications and grammatical errors. This is unintentional and the practitioner does try to identify and correct these, but some could still be present. Please do not hesitate to contact practitioner for clarification. All questions answered to patients satisfaction. Patient verbalized understanding of diagnosis and treatments explained. To call sooner prior to next visit it any questions/concerns arise. 08/10/2024 Prediabetes (ICD-10 - R73.03) 02/18/2023: weight 214.2 [...] changes. Body composition scale was reviewed at [facility]. Labs will need to be ordered. 06/15/23: [...] Diet discussed as well as resistance training, Case discussed with collaborating physician Isma who reviewed the assessment and plan. Chart, medications, labs, vital signs reviewed. Dictation was accomplished with the use of [email or web address] voice recognition software, prone to medical misidentifications and grammatical errors. This is unintentional and the practitioner does try to identify and correct these, but some could still be present. Please do not hesitate to contact practitioner for clarification. All questions answered to patients satisfaction. Patient verbalized understanding of diagnosis and treatments explained. To call sooner prior to next visit it any questions/concerns arise. 07/13/2024 Prediabetes (ICD-10 - R73.03) 02/18/2023: weight 214.2 [...] changes. Body composition scale was reviewed at [facility]. Labs will need to be ordered. 06/15/23: [...] mg injections weekly to inadequate appetite suppression. Case discussed with collaborating physician Jose Roman who reviewed the assessment and plan. Chart, medications, labs, vital signs reviewed. Dictation was accomplished with the use of [email or web address] voice recognition software, prone to medical misidentifications [...] it any questions/concerns arise. PLAN OF TREATMENT Pending Test Test Name Order Date EKG 01/21/2023 COMPREHENSIVE METABOLIC PANEL 04/27/2024 CBC (INCLUDES DIFF/PLT) 04/27/2024 HEMOGLOBIN A1c 04/27/2024 INSULIN 04/27/2024 TSH 04/27/2024 Next Appt Details Provider Name:ROSY SHARMA, 11/08/2024 10:45:00 AM, [address], [place], [address], Insurance Providers Payer Name Payer Address Payer Phone Subscriber Number Group Number Insured Name Patient Relationship to Insured Coverage Start Date Coverage End Date [facility] [address] [place] [address] [phone] [id number] Bassam Hernández Self - patient is the insured MEDICATIONS ADMINISTERED Medication Instructions Date of Administration Dosage Notes Semaglutide 07/08/2023 lot# [id number] 0.25mg Semaglutide 07/15/2023 lot#[id number] 0.25mg Semaglutide 07/22/2023 lot#[id number] 0.25mg MEDICAL (GENERAL) HISTORY Medical History History ICD Code Prediabetes R73.03 Obesity (BMI 30-39.9) E66.9
== END 2024-10-06 10:56 | disposition home or self-care (01) ==
LOC: HO.HWS 10:10
PROVIDERS: PCP Internal Medicine; Visit Provider Advanced Practice Midwife
DX: Z01.419 Encounter for gynecological examination (general) (routine) without abnormal findings (principal); Z80.3 Family history of malignant neoplasm of breast
CPT/HCPCS: 99396; 99459

== ENCOUNTER → 2025-08-08 09:30 | Outpatient (BNV) | payer OTHER, SELFPAY | PROVIDERS: PCP Internal Medicine; Visit Provider Internal Medicine | DX: Z12.31 Encounter for screening mammogram for malignant neoplasm of breast (principal) | CPT/HCPCS: 77063; 77067 ==

== ENCOUNTER 2025-08-08 09:33 | Outpatient (REF) | payer OTHER, SELFPAY ==
--- OUTSIDE RECORDS SUMMARY | 2025-08-08 10:42 | XMS_ITS | Encounter Summary ---
Author Organization [facility] Address [address] [place] [phone] Phone Care Team Providers Care Immigration Case Manager Name Role Phone Tonio Moscoso MD Primary Care Provider + Encounter Details Date Type Department Care Team (Late st Contact Info) Description 11/06/2024 One Di[facility] Generated VIRTUAL DEPARTMENT [address] [place] [address] Unknown, Unknown, Social History Tobacco Use Types Packs/Day Years Used Date Smoking Tobacco: Never Assessed Comments Unknown Sex and Gender Information Value Date Recorded Sex Assigned at Not on file Legal Sex Female 1:24 AM EST Gender Identity Not on file Sexual Orientation Not on file documented as of this encounter ED Notes * Unknown, MD Zehra - 11/06/2024 12:23 AM EST [facility] EMERGENCY DEPARTMENT RECORD CONCISE CHART WITHOUT LAB/RAD RESULTS This is a Summary Chart only For additional details, please see [email or web address] PCI ED Chart Viewer, the PulseCheck Option or Emergency Dept Scanned Forms. You may also contact Medical Records at [phone] / [phone]. [facility] HPI *GENERAL PRIMARY HISTORIAN: History provided by patient. HISTORY OF PRESENT ILLNESS: 39-year-old female with no significant medical history presenting with sudden onset of severe upper abdominal pain/chest pain. Patient states that she awoke around 11 AM with sudden onset of epigastric and substernal chest pain. She states the pain radiates into her back. She states the pain worsens with sitting up. She reports associated nausea without vomiting. She denies associated shortness of breath. Patient states she took a dose of Motrin without improvement. EMS reports twelve-lead was unremarkable, patient given full aspirin. Patient denies prior history of pancreatitis or biliary colic. She denies fever or recent illness. KNOWN ALLERGIES No Known Drug Allergies CURRENT MEDICATIONS Current medications not yet documented ROS NOTES: All pertinent ROS elements documented in HPI, A minimum of 10 systems reviewed and are negative except as eitherwise noted. PAST MEDICAL HISTORY MEDICAL HISTORY: No past medical history. SURGICAL HISTORY FEMALE: Patient has no surgical history. PSYCHIATRIC HISTORY: No previous psychiatric history, no previous inpatient psychiatric admissions, no previous emergency department psychiatric evaluations, not currently under outpatient psychiatric treatment. SOCIAL HISTORY: Patient denies alcohol use, drug use. Patient has no smoking history, Lives at home, with family, Patient reports feeling safe in relationships, No apparent signs or symptoms of abuse, Patient is able to speak freely. PHYSICAL EXAM CONSTITUTIONAL: Patient afebrile, Pulse normal, Respiratory rate normal, Blood pressure normal, Vital signs are stable, Vital signs reviewed, Well developed, well nourished, Mild to moderately elevated BMI, Patient appears alert, Patient appears, uncomfortable, Patient appears in distress, mild. HEAD: Head exam included findings of head atraumatic, normocephalic. EYES: Conjunctiva normal, Pupils equally round and reactive to light, Extraocular muscles intact. ENT: Mouth exam normal, Pharynx exam normal, Uvula exam normal, midline. NECK: Supple, Neck exam included findings of normal range of Name: Bassam Hernández : 1985 F39 MedRec: [id number] AcctNum: [id number] [facility] motion. RESPIRATORY CHEST: No respiratory distress, Good air exchange. CARDIOVASCULAR: Cardiovascular exam included findings of heart rate regular rate and rhythm, Heart sounds normal, no murmurs, no rub, no gallop. ABDOMEN FEMALE: Abdominal exam included findings of abdomen tender, to the epigastric region, to the right upper quadrant, moderate intensity, abdomen is soft, Bowel sounds normal, no distension, no peritoneal signs. BACK: range of motion normal. UPPER EXTREMITY: Upper extremity exam included findings of inspection normal, Radial pulse normal, no edema. LOWER EXTREMITY: no edema. NEURO: Carl coma scale 15, Neuro exam findings include patient oriented to person, place and time, Speech normal, no focal motor deficits. SKIN: Skin exam included findings of skin warm, dry. PSYCHIATRIC: Psychiatric exam included findings of patient oriented to person place and time, Affect is:, anxious. ORDERS Alcohol(Ethanol): Ordered by: MD Teixeira Ryan Mason Ordered for: MD Teixeira Ryan Mason Status: Done by: System - Sat Nov 06, 2024 01:37. CBC with Differential: Ordered by: MD Teixeira Ryan Mason Ordered for: MD Teixeira Ryan Mason Status: Done by: System - Sat Nov 06, 2024 01:23. Comprehensive Metabolic Panel: Ordered by: MD Teixeira Ryan Mason Ordered for: MD Teixeira Ryan Mason Status: Done by: System - Sat Nov 06, 2024 01:37. EKG,12 Leads,Tracing: Ordered by: MD Teixeira Ryan Mason Ordered for: MD Teixeira Ryan Mason Status: Active. Lipase: Ordered by: MD Teixeira Ryan Mason Ordered for: MD Teixeira Ryan Mason Status: Done by: System - Sat Nov 06, 2024 01:37. Magnesium: Ordered by: MD Teixeira Ryan Mason Ordered for: MD Teixeira Ryan Mason Status: Done by: System - Sat Nov 06, 2024 01:37. Test (Serum): Ordered by: MD Teixeira Ryan Mason Ordered for: MD Teixeira Ryan Mason Status: Done by: System - Sat Nov 06, 2024 01:37. Chest 2 Views: Ordered by: MD Teixeira Ryan Mason Ordered for: MD Teixeira Ryan Mason Status: Active. Troponin High Sensitivity: Ordered by: MD Teixeira Ryan Mason Ordered for: MD Teixeira Ryan Mason Status: Done by: System - Sat Nov 06, 2024 01:37. US Abdomen Limited: Ordered by: MD Teixeira Ryan Mason [facility] Ordered for: MD Teixeira Ryan Mason Status: Active. CT Abd Pel w/IV con (no PO): Ordered by: MD Teixeira Ryan Mason Ordered for: MD Teixeira Ryan Mason Status: Active. MEDICATION ADMINISTRATION SUMMARY Drug Name: *potassium chloride in water, Dose Ordered: 10 mEq, Route: IV Fluid Infusion, Status: Given, Time: 02:57 11/06/2024, Drug Name: *lactated Ringers intravenous, Dose Ordered: 1000 mL, Route: IV Fluid Infusion, Status: Given, Time: 01:07 11/06/2024, Drug Name: morphine intravenous, Dose Ordered: 4 mg, Route: IV Push, Status: Given, Time: 01:06 11/06/2024, Drug Name: ondansetron HCl (PF), Dose Ordered: 4 mg, Route: IV Push, Status: Given, Time: 01:05 11/06/2024, *Additional information available in notes, Detailed record available in Medication Service section. PROVIDER NOTES PROGRESS NOTES - VS: Acknowledge MAP < 65, VS Action Plan: No Additional Action Indicated. MDM NOTES PHYSICIAN MDM: 39-year-old female with no significant medical history presenting with sudden onset of severe upper abdominal pain/chest pain. Patient states that she awoke around 11 AM with sudden onset of epigastric and substernal chest pain. She states the pain radiates into her back. She states the pain worsens with sitting up. She reports associated nausea without vomiting. She denies associated shortness of breath. Patient states she took a dose of Motrin without improvement. EMS reports twelve-lead was unremarkable, patient given full aspirin. Patient denies prior history of pancreatitis or biliary colic. She denies fever or recent illness. Differential diagnosis includes but is not limited to: Pancreatitis, biliary colic, gastritis, GERD, less likely ACS On exam patient is quite uncomfortable, afebrile, vital signs within normal limits. Abdominal exam with moderate epigastric and right upper quadrant tenderness. No peritoneal signs. EKG interpreted by me notes sinus rhythm without ischemic changes. Chest x-ray interpreted by me notes large stomach bubble, no intrathoracic pathology. Laboratory studies were obtained notable for WBC of 8.1, metabolic panel with mild hypokalemia potassium 3.2, creatinine 0.77, mild transaminitis AST of 71 ALT of 41. Lipase mildly elevated at 78. High-sensitivity troponin is negative. Ethanol is undetectable. Negative test. With concern for possible biliary colic versus pancreatitis, [facility] upper quadrant ultrasound was obtained which noted no concerning findings. Patient was given morphine and Zofran, LR bolus, on reassessment had continued pain so we proceeded with CT abdomen pelvis to evaluate for other etiology of her symptoms; CT abdomen pelvis noted no acute findings, no evidence of intestinal obstruction, normal gallbladder and pancreas. Patient was given IV potassium repletion. On reassessment she reported significant improvement in pain and had no tenderness on repeat exam. Etiology of her symptoms is unclear, may be due to indigestion or gas pains. Patient counseled on symptomatic management. Discharged with strict ED return precautions given. DIAGNOSIS FINAL: PRIMARY: Upper abdominal pain, ADDITIONAL: Hypokalemia, Transaminitis. DISPOSITION PATIENT: Disposition Type: Discharge, Disposition: HOME. Patient departed from the Emergency Department. INSTRUCTION DISCHARGE: HYPOKALEMIA-BRIEF, ABDOMINAL PAIN (NONSPECIFIC). FOLLOWUP: PCP, [facility], Physician Referral Website, [email or web address], Follow up with Primary Care Physician Call to schedule follow up appointment. SPECIAL: You were seen in the emergency department for abdominal pain. Your evaluation here was reassuring. Abdominal ultrasound and CT scan showed no concerning findings. Laboratory studies were notable for mildly low potassium level, and very mildly elevated liver function tests. The cause of your symptoms is unclear, may be due to gas pains or indigestion. Rest and stay hydrated. Avoid spicy or fatty foods. Avoid alcohol. Please follow-up with your doctor when you return home. Return to the ER if you have worsening symptoms, fever, vomiting multiple times, or for any other concerns. PRESCRIPTION No recorded prescriptions ADMIN DIGITAL SIGNATURE: MD Lluvia, [place] Matias. Quiñones: DARNELL=MD Lluvia, [place] Matias FLORESITA=DANIEL Goel, [facility] CC OTHER PROVIDER: PRIMARY CARE: UNLISTED PROVIDER * Unknown, Zehra, - 11/06/2024 12:23 AM EST [facility] EMERGENCY DEPARTMENT DISPOSITION SUMMARY This is a Summary Chart only For additional details, please see [facility] ED Chart Viewer, the PulseCheck Option or Emergency Dept Scanned Forms. You may also contact Medical Records at [phone] / [phone]. [facility] PROVIDER NOTES PROGRESS NOTES - VS: Acknowledge MAP < 65, VS Action Plan: No Additional Action Indicated. MDM NOTES PHYSICIAN MDM: 39-year-old female with no significant medical history presenting with sudden onset of severe upper abdominal pain/chest pain. Patient states that she awoke around 11 AM with sudden onset of epigastric and substernal chest pain. She states the pain radiates into her back. She states the pain worsens with sitting up. She reports associated nausea without vomiting. She denies associated shortness of breath. Patient states she took a dose of Motrin without improvement. EMS reports twelve-lead was unremarkable, patient given full aspirin. Patient denies prior history of pancreatitis or biliary colic. She denies fever or recent illness. Differential diagnosis includes but is not limited to: Pancreatitis, biliary colic, gastritis, GERD, less likely ACS On exam patient is quite uncomfortable, afebrile, vital signs within normal limits. Abdominal exam with moderate epigastric and right upper quadrant tenderness. No peritoneal signs. EKG interpreted by me notes sinus rhythm without ischemic changes. Chest x-ray interpreted by me notes large stomach bubble, no intrathoracic pathology. Laboratory studies were obtained notable for WBC of 8.1, metabolic panel with mild hypokalemia potassium 3.2, creatinine 0.77, mild transaminitis AST of 71 ALT of 41. Lipase mildly elevated at 78. High-sensitivity troponin is negative. Ethanol is undetectable. Negative test. With concern for possible biliary colic versus pancreatitis, right upper quadrant ultrasound was obtained which noted no concerning findings. Patient was given morphine and Zofran, LR bolus, on reassessment had continued pain so we proceeded with CT abdomen pelvis to evaluate for other etiology of her symptoms; CT abdomen pelvis noted no acute findings, no evidence of intestinal obstruction, normal gallbladder and pancreas. Patient was given IV potassium repletion. On reassessment she reported significant improvement in pain and had no tenderness on repeat exam. Etiology of her symptoms is unclear, may be due to indigestion or gas pains. Patient counseled on symptomatic management. Discharged with strict ED return precautions given. DISPOSITION PATIENT: Disposition Type: Discharge, Disposition: HOME. Patient departed from the Emergency Department. INSTRUCTION DISCHARGE: HYPOKALEMIA-BRIEF, ABDOMINAL PAIN (NONSPECIFIC). FOLLOWUP: PCP, NO, Physician Referral Website, [email or web address], Follow up with Primary Care Physician Call to Name: Bassam Hernández : 1985 F39 MedRec: [id number] AcctNum: [id number] [facility] schedule follow up appointment. SPECIAL: You were seen in the emergency department for abdominal pain. Your evaluation here was reassuring. Abdominal ultrasound and CT scan showed no concerning findings. Laboratory studies were notable for mildly low potassium level, and very mildly elevated liver function tests. The cause of your symptoms is unclear, may be due to gas pains or indigestion. Rest and stay hydrated. Avoid spicy or fatty foods. Avoid alcohol. Please follow-up with your doctor when you return home. Return to the ER if you have worsening symptoms, fever, vomiting multiple times, or for any other concerns. PRESCRIPTION No recorded prescriptions ADMIN DIGITAL SIGNATURE: MD Lluvia, [place] Matias. Quiñones: DARNELL=MD Lluvia, [place] KLEIN=DANIEL Goel, [facility] CC OTHER PROVIDER: PRIMARY CARE: UNLISTED PROVIDER documented in this encounter Plan of Treatment Not on file documented as of this encounter Visit Diagnoses Not on filedocumented in this encounter Care Teams Immigration Case Manager Relationship Specialty Start Date End Date Tonio Moscoso MD [address] [place] [phone] PCP - General Internal Medicine 01/08/23 documented as of this encounter Additional Source Comments The information contained in this document represents components of the legal health record. It is not the complete legal health record.[facility]
--- OUTSIDE RECORDS SUMMARY | 2025-08-08 10:42 | XMS_ITS | Clinical Summary ---
[place] [address] Phone Care Team Providers Care Chair Maker Name Role Phone Tonio Moscoso MD Primary Care Provider + Social History Tobacco Use Types Packs/Day Years Used Date Smoking Tobacco: Never Assessed Comments Unknown Sex and Gender Information Value Date Recorded Sex Assigned at Not on file Legal Sex Female 1:24 AM EST Gender Identity Not on file Sexual Orientation Not on file Plan of Treatment Not on file Medical Devices Not on file Insurance O O O O HMO Member Subscriber Plan / Payer (Ef fective 2022-Present) Name:HernándezBassam Relation to Subscriber:Spouse Name:JOSE CHUA Date of :1981 (Home) Address: [address] [place] [address] Payer ID:Not on file Type:HMO Address: [place] [id number] HMO Member Subscriber Plan / Payer (Ef fective 2022-Present) Name:Bassam Hernández Relation to Subscriber:Spouse Name:JOSE CHUA Date of :1981 (Home) Address: [address] [place] [address] Payer ID:Not on file Type:HMO Address: [place] [id number] Care Teams Chair Maker Relationship Specialty Start Date End Date Tonio Moscoso MD [address] [place] [phone] PCP - General Internal Medicine 01/08/23 Additional Source Comments The information contained in this document represents components of the legal health record. It is not the complete legal health record.[facility]
--- OUTSIDE RECORDS SUMMARY | 2025-08-08 10:42 | XMS_ITS | Clinical Summary ---
Author Organization [facility] [address] [place] [address] [place] [phone] Phone Care Team Providers Care Demolitionist Name Role Phone Tonio Moscoso MD Primary Care Provider [phone] Allergies Active Allergy Reactions Criticality Noted Date Comments Shellfish Containing Products Anaphylaxis High 10/11 Medications ergocalciferol (VITAMIN D-2) 1,250 mcg (50,000 unit) capsule Take 1 capsule (50,000 Units total) by mouth 1 (one) time per week. 3 Active fexofenadine (SRIDEVI) 180 mg tablet Take 1 tablet (180 mg total) by mouth 1 (one) time each day. Do not take with fruit juice 3 Active ZINC ORAL Take by mouth. Activ e MAGNESIUM ORAL Take by mouth. Active saccharomyces boulardii (FLORASTOR) 250 mg capsule Take 1 capsule (250 mg total) by mouth 1 (one) time each day. 2 Active levonorgestreL (MIRENA) 21 mcg/24hr (up to 8 yrs) 52 mg IUD 1 Device (1 each total) by intrauterine route 1 (one) time. Active VITAMIN B COMPLEX ORAL Take by mouth. Ac tive tirzepatide, weight loss, (Zepbound) 2.5 mg/0.5 mL injection Inject 0.5 mL (2.5 mg total) under the skin every 7 (seven) days. Active ibuprofen (ADVIL,MOTRIN) 800 mg tablet Take 1 tablet (800 mg total) by mouth every 8 (eight) hours if needed for mild pain (for up to 30 days). 90 tablet 5 Active Active Problems Problem Noted Date Diagnosed Date Vitamin D deficiency 01/23/2022 COVID-19 10/11/2021 Overview (09/06/2024): DX: 09/16/21 Severe obesity (BMI 35.0-39. 9) with comorbidity ([facility] V24, [facility] V28) 11/19/2017 Ovarian retention cyst 03/16/2015 Asthma 09/15/2010 Overview (09/06/2024): when younger, has not had to use inhaler for years Encounters Date Type Department Care Team Description 06/08/2025 5:00 PM EDT Office Visit Adult Medicine [address] [phone] Smita Guo NP Intractable chronic cluster headache (Primary Dx); Photophobia of both eyes 06/08/2025 Telephone Adult Medicine [address] [phone] Violet Hannon MA from Last 3 Months Surgical History Surgery Date Site/Laterality Comments BELT ABDOMINOPLASTY PROCEDURE: HISTORICAL TUMMY TUCK BREAST REDUCTION PROCEDURE: MI BREAST REDUCTION OTHER SURGICAL HISTORY 2013 PROCEDURE: ---- OTHER ----; COMMENT: liposuction kaya thighs Medical History Medical History Date Comments Asthma 09/15/2010 DX:Asthma Family History Medical History Relation Name Comments Prostate cancer Father Ovarian cancer Father's side 1 aunt Other: ovarian cancer Father's side 2 cou sin Breast cancer Mother lupus Prostate cancer Paternal Grandfather blad soha cancer Colon cancer Sister Relation Name Status Comments Father Father's side 1 Father's side 2 Mother early 40's when Dx Paternal Grandfather Sister Social History Tobacco Use Types Packs/Day Years Used Date Smoking Tobacco: Never Smokeless Tobacco: Never Tobacco Cessation:Counseling Given: Not Answered Alcohol Use Standard Drinks/Week Comments No 0 (1 standard drink = 0.6 oz pur e alcohol) Comments Unknown Sex and Gender Information Value Date Recorded Sex Assigned at Not on file Legal Sex Female 4:34 AM EST Gender Identity Not on file Sexual Orientation Not on file Obstetrics History Last Filed Vital Signs Vital Sign Reading Time Taken Comments Blood Pressure 108/69 06/08/2025 1:16 PM EDT Pulse 94 06/08/2025 1:16 PM EDT Temperature 36.2 C (97.2 F) 06/08/2025 1:16 PM EDT Respiratory Rate 16 06/08/2025 1:16 PM EDT Oxygen Saturation 97% 06/08/2025 1:16 PM EDT Inhaled Oxygen Concentration - - Weight 84.8 kg (187 lb) 06/08/2025 1:16 PM EDT Height 165.1 cm (5' 5 ) 06/08/2025 1:16 PM EDT Body Mass Index 31.12 06/08/2025 1:16 PM EDT Plan of Treatment Upcoming Encounters Date Type Department Care Team (Late st Contact Info) Description 12/01/2025 2:00 PM EST Office Visit Adult Medicine [facility] [address] [place] [phone] Tonio Moscoso MD [address] [place] [phone] Health Maintenance Due Date Last Done Comments DTaP,Tdap,and Td Vaccines (1 - Tdap) 2003 Hepatitis B Vaccines (1 of 3 - 19+ 3-dose series) 2003 Pneumococcal Vaccine: Pediatrics (0 to 5 Years) and At-Risk Patients (6 to 49 Years) (1 of 2 - PCV) 2003 HPV Vaccines (1 - 3-dose SCD M series) 2011 Cervical Cancer Screening: P ap Smear 03/22/2019 03/22/2016, 03/22/2016 HIV Screening 09/01/2022 Hepatitis C Screening 09/01/2022 Social Influencers of Health Screening 09/01/2022 Depression Screening 09/29/2024 COVID-19 Vaccine (1 - 2023-2 5 season) 2025 Influenza Vaccine (#1) 2025 Breast Cancer Screening 08/02/2026 08/02/2024 Cholesterol Screening (Lipid Panel) 01/23/2027 01/23/2022 RSV Immunization Adult Patients (1 - 1-dose 75+ series) 2059 HIB Vaccines Aged Out No longer eligi ble based on patient's age to complete this topic Hepatitis A Vaccines Aged Out No long er eligible based on patient's age to complete this topic IPV Vaccines Aged Out No longer eligi ble based on patient's age to complete this topic MMR Vaccines Aged Out No longer eligi ble based on patient's age to complete this topic Meningococcal ACWY Vaccine Aged Out N o longer eligible based on patient's age to complete this topic Meningococcal B Vaccine Aged Out No l onger eligible based on patient's age to complete this topic RSV Immunization Patients Under 20 months Aged Out No longer eligible b ased on patient's age to complete this topic Varicella Vaccines Aged Out No longer eligible based on patient's age to complete this topic Procedures Procedure Name Priority Date/Time Associated Diagnosis Comments EXTERNAL MAMMOGRAM REPORT 08/02/2024 LIPID PANEL Routine 01/23/2022 HPV Routine 03/22/2016 from Last 3 Months or Most Recently Relevant to Health Maintenance Results * External Mammogram Report (08/02/2024) Anatomical Region Laterality Modality Mammography Provider Onbase IMG BI PROCEDURES Final Resul t * (ABNORMAL) Lipid panel (01/23/2022) Pathologist [facility] LDL/HDL Ratio 5(A) 0 - 4 Triglycerides 136 0 - 150 mg/dL Cholesterol 186 0 - 200 mg/dL HDL 39(A) >=40 mg/dL LDL Cholesterol 120(A) 0 - 100 mg/dL Blood Venous blood specimen / Unknown Historical Provider LAB BLOOD ORDERABLES Yue l Result * Cervical Cancer Screening: HPV (03/22/2016) Pathologist [facility] Cervical Cancer Screening: HPV abstracted, negative us Historical Provider HEALTH MAINTENANCE Final Result from Last 3 Months or Most Recently Relevant to Health Maintenance Insurance [facility] Care Teams Demolitionist Relationship Specialty Start Date End Date Tonio Moscoso MD [address] [place] [phone] PCP - General Internal Medicine 05/26/25
--- OUTSIDE RECORDS SUMMARY | 2025-08-08 10:45 | XMS_ITS | Patient Health Record ---
Author Organization [facility] [address] Address [address] [place] [address] Care Team Providers Care Host Name Role Phone ROSY SHARMA Unavailable [phone] TEA VERMA Unavailable [phone] Allergies Allergen (clinical drug ingredient) Drug/Non Drug Allergy documented on EMR Reaction Allergy Type Onset Date Status Seafood seafood (uncoded) hives Allergy Ac tive Reason For Referral No Information Medications Medication SIG (Take, Route, Frequency, Duration) Notes Start Date End Date Status Mirena (52 MG) 20 MCG/DAY Intrauterine Device as directed Intrauterine OBGYN 2019 Active Ondansetron HCl 4 MG Tablet 1 tablet Orally Once a day; Duration: 30 days As needed nausea 08/10/2024 Active Mounjaro 12.5 MG/0.5ML Solution Auto-injector inject 12.5mg Subcutaneous weekly; Duration: 28 days 05/10/2025 Active Mounjaro 12.5 MG/0.5ML Solution Auto-injector 12.5 mg Subcutaneous weekly; Duration: 30 days 06/30/2025 Active Social History Tobacco Use: Social History Observation Description Date Details (start date - stop date) Never Smoker NA - NA Social History Drugs/Alcohol: Social Info Question Answer Notes Alcohol Screen (Audit-C) Did you have a drink containing alcohol in the past year? No Points 0 Interpretation Negative Tobacco Use: Social Info Question Answer Notes Tobacco Use/Smoking Are you a nonsmoker Additional Details Category Social Info Options Details Drugs/Alcohol: Do you smoke marijuana? De nies Do you drink alcohol? No Problems Problem Type SNOMED Code ICD Code Onset Dates Problem Status W/U Status Risk Notes Problem Adult health examination (747197787) Adult general medical exam (Z00.00) Active confirmed Problem Hypothyroidism (25762373) Hypothyroidism, unspecified type (E03.9) Active confirmed Problem Diabetes mellitus screening (558988725) Diabetes mellitus screening (Z13.1) Active confirmed Problem Obesity (653720617) Obesity (BMI 30-39.9) (E66.9) Active confirmed Problem Obese class II (912446207123990) BMI 37.0-37.9, adult (Z68.37) Active confirmed Problem Obese class II (003603944090281) BMI 35.0-35.9,adult (Z68.35) Active confirmed Problem BMI 30+ - obesity (492334799) BMI 32.0-32.9,adult (Z68.32) Active confirmed Problem Obese class II (412219104210346) BMI 36.0-36.9,adult (Z68.36) Active confirmed Problem Body mass index 30.00 to 34.99 (226833919634596) BMI 31.0-31.9,adult (Z68.31) Active confirmed Problem Body mass index 30+ - obesity (273147709) BMI 30.0-30.9,adult (Z68.30) Active confirmed Problem Body mass index 30.00 to 34.99 (974903141535770) BMI 34.0-34.9,adult (Z68.34) Active confirmed Problem Hypothyroid (15731196) Hypothyroid (E03.9) Active confirmed Vital Signs Heart Rate 96 /min 06/30/2025 Oximetry 97 % 06/30/2025 Blood pressure diastolic 78 mm Hg 06/30/2025 Height 64 in 06/30/2025 Blood pressure systolic 110 mm Hg 06/30/2025 Weight 177.3 lbs 06/30/2025 BMI 30.43 kg/m2 06/30/2025 Encounters Encounter Location Date Provider Diagnosis [facility] [address] [place], [place] 11/08/2024 ROSY SHARMA [facility] [address] [place], [place] 12/23/2024 ROSY SHARMA [facility] [address] [place], [place] 08/10/2024 ROSY SHARMA Obesity (BMI 30-39.9 ) E66.9 ; BMI 35.0-35.9,adult Z68.35 and Prediabetes R73.[address] [facility] [address] [place], [place] 09/30/2024 ROSY EDITH Obesity (BMI 30-39.9 ) E66.9 ; BMI 35.0-35.9,adult Z68.35 and Prediabetes R73.[address] [facility] [address] [place], [place] 11/11/2024 ROSY EDITH Obesity (BMI 30-39.9 ) E66.9 ; BMI 34.0-34.9,adult Z68.34 and Prediabetes R73.[address] [facility] [address] [place], [place] 02/07/2025 ROSY EDITH Obesity (BMI 30-39.9 ) E66.9 ; BMI 32.0-32.9,adult Z68.32 ; Prediabetes R73.03 and Encounter for examination of blood pressure without abnormal findings Z01.[address] [facility] [address] [place], [place] 04/04/2025 ROSY EDITH Obesity (BMI 30-39.9 ) E66.9 ; BMI 31.0-31.9,adult Z68.31 ; Prediabetes R73.03 and Encounter for examination of blood pressure without abnormal findings Z01.[address] [facility] [address] [place], [place] 06/30/2025 ROSY EDITH Obesity (BMI 30-39.9 ) E66.9 ; BMI 30.0-30.9,adult Z68.30 ; Prediabetes R73.03 and Encounter for examination of blood pressure without abnormal findings Z01.[address] [facility] [address] [place], [place] 09/30/2024 ROSY EDITH [facility] [address] [place] [id number] 12/24/2024 ROSY EDITH [facility] [address] [place], [place] 02/07/2025 ROSY EDITH [facility] [address] [place], [place] 22/2025 [facility] [address] [place] [id number] 05/10/2025 ROSY SHARMA Assessments Encounter Date Diagnosis (ICD Code) Assessment Notes Treatment Notes Treatment Clinical Notes Section Notes 08/10/2024 Obesity (BMI 30-39.9) (ICD-10 - E66.9) [...] changes. Body composition scale was reviewed at [facility]. Labs will need to be ordered. [...] Dictation was accomplished with the use of [employer] voice recognition software, prone to medical misidentifications [...] changes. Body composition scale was reviewed at [facility]. Labs will need to be ordered. [...] Dictation was accomplished with the use of [employer] voice recognition software, prone to medical misidentifications [...] changes. Body composition scale was reviewed at [facility]. Labs will need to be ordered. [...] Dictation was accomplished with the use of [employer] voice recognition software, prone to medical misidentifications [...] changes. Body composition scale was reviewed at [facility]. Labs will need to be ordered. [...] Dictation was accomplished with the use of [employer] voice recognition software, prone to medical misidentifications and grammatical errors. This is unintentional and the practitioner does try to identify and correct these, but some could still be present. Please do not hesitate to contact practitioner for clarification. All questions answered to patients satisfaction. Patient verbalized understanding of diagnosis and treatments explained. To call sooner prior to next visit it any questions/concerns arise. 11/11/2024 Obesity (BMI 30-39.9) (ICD-10 - E66.9) 02/18/2023: [...] changes. Body composition scale was reviewed at [facility]. Labs will need to be ordered. [...] no improvement on Zepbound, including stool study, 11/12/24: BMI 34, Weight 198. Continue Zepbound, will increase to 7.5 mg subcu weekly. Tolearting significantly better than Wegovy. Increase protein intake and resistance trainng. Lost 5 lb of fat. Slightly muscle loss. DIscussed adequate hydraiton. Total time spent with patient was 35 minutes with over half being face to face time. Case discussed with collaborating physician Isma who reviewed the assessment and plan. Chart, medications, labs, vital signs reviewed. Dictation was accomplished with the use of [employer] voice recognition software, prone to medical misidentifications and grammatical errors. This is unintentional and the practitioner does try to identify and correct these, but some could still be present. Please do not hesitate to contact practitioner for clarification. All questions answered to patients satisfaction. Patient verbalized understanding of diagnosis and treatments explained. To call sooner prior to next visit it any questions/concerns arise. 11/11/2024 BMI 34.0-34.9,adul t (ICD-10 - Z68.34) 02/18/2023: weight 214.2 lbs, BMI 36.76-- Bassam [...] changes. Body composition scale was reviewed at [facility]. Labs will need to be ordered. [...] no improvement on Zepbound, including stool study, 11/12/24: BMI 34, Weight 198. Continue Zepbound, will increase to 7.5 mg subcu weekly. Tolearting significantly better than Wegovy. Increase protein intake and resistance trainng. Lost 5 lb of fat. Slightly muscle loss. DIscussed adequate hydraiton. Total time spent with patient was 35 minutes with over half being face to face time. Case discussed with collaborating physician Isma who reviewed the assessment and plan. Chart, medications, labs, vital signs reviewed. Dictation was accomplished with the use of [employer] voice recognition software, prone to medical misidentifications and grammatical errors. This is unintentional and the practitioner does try to identify and correct these, but some could still be present. Please do not hesitate to contact practitioner for clarification. All questions answered to patients satisfaction. Patient verbalized understanding of diagnosis and treatments explained. To call sooner prior to next visit it any questions/concerns arise. 02/07/2025 Obesity (BMI 30-39.9) (ICD-10 - E66.9) 02/18/2023: [...] changes. Body composition scale was reviewed at [facility]. Labs will need to be ordered. [...] no improvement on Zepbound, including stool study, 11/12/24: BMI 34, Weight 198. Continue Zepbound, will increase to 7.5 mg subcu weekly. Tolearting significantly better than Wegovy. Increase protein intake and resistance trainng. Lost 5 lb of fat. Slightly muscle loss. DIscussed adequate hydraiton. 02/07/25: BMI 32, Weight 186. Continue Zepbound, increase to 10 mg subcu weekly. TOlerating well. Total time spent with patient was 35 minutes with over half being face to face time. Case discussed with collaborating physician Isma who reviewed the assessment and plan. Chart, medications, labs, vital signs reviewed. Dictation was accomplished with the use of [employer] voice recognition software, prone to medical misidentifications and grammatical errors. This is unintentional and the practitioner does try to identify and correct these, but some could still be present. Please do not hesitate to contact practitioner for clarification. All questions answered to patients satisfaction. Patient verbalized understanding of diagnosis and treatments explained. To call sooner prior to next visit it any questions/concerns arise. 02/07/2025 BMI 32.0-32.9,adul t (ICD-10 - Z68.32) 02/18/2023: weight 214.2 lbs, BMI 36.76-- Bassam [...] changes. Body composition scale was reviewed at [facility]. Labs will need to be ordered. [...] no improvement on Zepbound, including stool study, 11/12/24: BMI 34, Weight 198. Continue Zepbound, will increase to 7.5 mg subcu weekly. Tolearting significantly better than Wegovy. Increase protein intake and resistance trainng. Lost 5 lb of fat. Slightly muscle loss. DIscussed adequate hydraiton. 02/07/25: BMI 32, Weight 186. Continue Zepbound, increase to 10 mg subcu weekly. TOlerating well. Total time spent with patient was 35 minutes with over half being face to face time. Case discussed with collaborating physician Isma who reviewed the assessment and plan. Chart, medications, labs, vital signs reviewed. Dictation was accomplished with the use of [employer] voice recognition software, prone to medical misidentifications and grammatical errors. This is unintentional and the practitioner does try to identify and correct these, but some could still be present. Please do not hesitate to contact practitioner for clarification. All questions answered to patients satisfaction. Patient verbalized understanding of diagnosis and treatments explained. To call sooner prior to next visit it any questions/concerns arise. 04/04/2025 Obesity (BMI 30-39.9) (ICD-10 - E66.9) 02/18/2023: weight 214.2 lbs, BMI 36.76- Bassam is a 37 year old female [...] changes. Body composition scale was reviewed at [facility]. Labs will need to be ordered. [...] no improvement on Zepbound, including stool study, 11/12/24: BMI 34, Weight 198. Continue Zepbound, will increase to 7.5 mg subcu weekly. Tolearting significantly better than Wegovy. Increase protein intake and resistance trainng. Lost 5 lb of fat. Slightly muscle loss. DIscussed adequate hydraiton. 02/07/25: BMI 32, Weight 186. Continue Zepbound, increase to 10 mg subcu weekly. TOlerating well. 04/04/25: BMI 31, Weight 186 lb. Continue Zepbound, increase to 12.5 mg subcu weekly. Ariel JohnsonTc Sherice patients have had overall stability. We have talked about her diet, patient only eats mostly meals a day. She often skips. She reports increased supplemental ibuprofen, ibuprofen use, medically easily. She reports her activity is overall decreased. Patient plans on going on vacation the next 2 weeks Total time spent with patient was 35 minutes with over half being face to face time. Case discussed with collaborating physician Isma who reviewed the assessment and plan. Chart, medications, labs, vital signs reviewed. Dictation was accomplished with the use of [employer] voice recognition software, prone to medical misidentifications and grammatical errors. This is unintentional and the practitioner does try to identify and correct these, but some could still be present. Please do not hesitate to contact practitioner for clarification. All questions answered to patients satisfaction. Patient verbalized understanding of diagnosis and treatments explained. To call sooner prior to next visit it any questions/concerns arise. 04/04/2025 BMI 31.0-31.9,adul t (ICD-10 - Z68.31) 02/18/2023: weight 214.2 lbs, BMI 36.76- Bassam is a 37 year old female [...] changes. Body composition scale was reviewed at [facility]. Labs will need to be ordered. [...] no improvement on Zepbound, including stool study, 11/12/24: BMI 34, Weight 198. Continue Zepbound, will increase to 7.5 mg subcu weekly. Tolearting significantly better than Wegovy. Increase protein intake and resistance trainng. Lost 5 lb of fat. Slightly muscle loss. DIscussed adequate hydraiton. 02/07/25: BMI 32, Weight 186. Continue Zepbound, increase to 10 mg subcu weekly. TOlerating well. 04/04/25: BMI 31, Weight 186 lb. Continue Zepbound, increase to 12.5 mg subcu weekly. Ariel Smiley patients have had overall stability. We have talked about her diet, patient only eats mostly meals a day. She often skips. She reports increased supplemental ibuprofen, ibuprofen use, medically easily. She reports her activity is overall decreased. Patient plans on going on vacation the next 2 weeks Total time spent with patient was 35 minutes with over half being face to face time. Case discussed with collaborating physician Isma who reviewed the assessment and plan. Chart, medications, labs, vital signs reviewed. Dictation was accomplished with the use of [employer] voice recognition software, prone to medical misidentifications and grammatical errors. This is unintentional and the practitioner does try to identify and correct these, but some could still be present. Please do not hesitate to contact practitioner for clarification. All questions answered to patients satisfaction. Patient verbalized understanding of diagnosis and treatments explained. To call sooner prior to next visit it any questions/concerns arise. 06/30/2025 Obesity (BMI 30-39.9) (ICD-10 - E66.9) 02/18/2023: weight 214.2 lbs, BMI 36.76- Bassam is a 37 year old female [...] changes. Body composition scale was reviewed at [facility]. Labs will need to be ordered. [...] no improvement on Zepbound, including stool study, 11/12/24: BMI 34, Weight 198. Continue Zepbound, will increase to 7.5 mg subcu weekly. Tolearting significantly better than Wegovy. Increase protein intake and resistance trainng. Lost 5 lb of fat. Slightly muscle loss. DIscussed adequate hydraiton. 02/07/25: BMI 32, Weight 186. Continue Zepbound, increase to 10 mg subcu weekly. TOlerating well. 04/04/25: BMI 31, Weight 186 lb. Continue Zepbound, increase to 12.5 mg subcu weekly. Ariel Smiley patients have had overall stability. We have talked about her diet, patient only eats mostly meals a day. She often skips. She reports increased supplemental ibuprofen, ibuprofen use, medically easily. She reports her activity is overall decreased. Patient plans on going on vacation the next 2 weeks 06/30/2025: Patient's BMI is 30, weight is 177. We will continue Zepbound 12.5 mg subcu weekly. Patient is overall tolerating well. Patient is encouraged to increase her protein intake. Patient lost mostly fat mass. Patient is encouraged to increase her hydration. Congratulated on efforts. Total time spent with patient was 35 minutes with over half being face to face time. Case discussed with collaborating physician Isma who reviewed the assessment and plan. Chart, medications, labs, vital signs reviewed. Dictation was accomplished with the use of [employer] voice recognition software, prone to medical misidentifications and grammatical errors. This is unintentional and the practitioner does try to identify and correct these, but some could still be present. Please do not hesitate to contact practitioner for clarification. All questions answered to patients satisfaction. Patient verbalized understanding of diagnosis and treatments explained. To call sooner prior to next visit it any questions/concerns arise. 06/30/2025 BMI 30.0-30.9,adul t (ICD-10 - Z68.30) 02/18/2023: weight 214.2 lbs, BMI 36.76- Bassam is a 37 year old female [...] changes. Body composition scale was reviewed at [facility]. Labs will need to be ordered. [...] no improvement on Zepbound, including stool study, 11/12/24: BMI 34, Weight 198. Continue Zepbound, will increase to 7.5 mg subcu weekly. Tolearting significantly better than Wegovy. Increase protein intake and resistance trainng. Lost 5 lb of fat. Slightly muscle loss. DIscussed adequate hydraiton. 02/07/25: BMI 32, Weight 186. Continue Zepbound, increase to 10 mg subcu weekly. TOlerating well. 04/04/25: BMI 31, Weight 186 lb. Continue Zepbound, increase to 12.5 mg subcu weekly. Ariel Smiley patients have had overall stability. We have talked about her diet, patient only eats mostly meals a day. She often skips. She reports increased supplemental ibuprofen, ibuprofen use, medically easily. She reports her activity is overall decreased. Patient plans on going on vacation the next 2 weeks 06/30/2025: Patient's BMI is 30, weight is 177. We will continue Zepbound 12.5 mg subcu weekly. Patient is overall tolerating well. Patient is encouraged to increase her protein intake. Patient lost mostly fat mass. Patient is encouraged to increase her hydration. Congratulated on efforts. Total time spent with patient was 35 minutes with over half being face to face time. Case discussed with collaborating physician Isma who reviewed the assessment and plan. Chart, medications, labs, vital signs reviewed. Dictation was accomplished with the use of [employer] voice recognition software, prone to medical misidentifications and grammatical errors. This is unintentional and the practitioner does try to identify and correct these, but some could still be present. Please do not hesitate to contact practitioner for clarification. All questions answered to patients satisfaction. Patient verbalized understanding of diagnosis and treatments explained. To call sooner prior to next visit it any questions/concerns arise. 06/30/2025 Prediabetes (ICD-10 - R73.03) 02/18/2023: weight 214.2 lbs, BMI 36.76- Bassam is a 37 year old female [...] changes. Body composition scale was reviewed at [facility]. Labs will need to be ordered. [...] no improvement on Zepbound, including stool study, 11/12/24: BMI 34, Weight 198. Continue Zepbound, will increase to 7.5 mg subcu weekly. Tolearting significantly better than Wegovy. Increase protein intake and resistance trainng. Lost 5 lb of fat. Slightly muscle loss. DIscussed adequate hydraiton. 02/07/25: BMI 32, Weight 186. Continue Zepbound, increase to 10 mg subcu weekly. TOlerating well. 04/04/25: BMI 31, Weight 186 lb. Continue Zepbound, increase to 12.5 mg subcu weekly. Ariel Smiley patients have had overall stability. We have talked about her diet, patient only eats mostly meals a day. She often skips. She reports increased supplemental ibuprofen, ibuprofen use, medically easily. She reports her activity is overall decreased. Patient plans on going on vacation the next 2 weeks 06/30/2025: Patient's BMI is 30, weight is 177. We will continue Zepbound 12.5 mg subcu weekly. Patient is overall tolerating well. Patient is encouraged to increase her protein intake. Patient lost mostly fat mass. Patient is encouraged to increase her hydration. Congratulated on efforts. Total time spent with patient was 35 minutes with over half being face to face time. Case discussed with collaborating physician Isma who reviewed the assessment and plan. Chart, medications, labs, vital signs reviewed. Dictation was accomplished with the use of [employer] voice recognition software, prone to medical misidentifications and grammatical errors. This is unintentional and the practitioner does try to identify and correct these, but some could still be present. Please do not hesitate to contact practitioner for clarification. All questions answered to patients satisfaction. Patient verbalized understanding of diagnosis and treatments explained. To call sooner prior to next visit it any questions/concerns arise. 02/07/2025 Prediabetes (ICD-10 - R73.03) 02/18/2023: weight 214.2 [...] changes. Body composition scale was reviewed at [facility]. Labs will need to be ordered. [...] no improvement on Zepbound, including stool study, 11/12/24: BMI 34, Weight 198. Continue Zepbound, will increase to 7.5 mg subcu weekly. Tolearting significantly better than Wegovy. Increase protein intake and resistance trainng. Lost 5 lb of fat. Slightly muscle loss. DIscussed adequate hydraiton. 02/07/25: BMI 32, Weight 186. Continue Zepbound, increase to 10 mg subcu weekly. TOlerating well. Total time spent with patient was 35 minutes with over half being face to face time. Case discussed with collaborating physician Isma who reviewed the assessment and plan. Chart, medications, labs, vital signs reviewed. Dictation was accomplished with the use of [employer] voice recognition software, prone to medical misidentifications and grammatical errors. This is unintentional and the practitioner does try to identify and correct these, but some could still be present. Please do not hesitate to contact practitioner for clarification. All questions answered to patients satisfaction. Patient verbalized understanding of diagnosis and treatments explained. To call sooner prior to next visit it any questions/concerns arise. 04/04/2025 Prediabetes (ICD-10 - R73.03) 02/18/2023: weight 214.2 lbs, BMI 36.76- Bassam is a 37 year old female [...] changes. Body composition scale was reviewed at [facility]. Labs will need to be ordered. [...] no improvement on Zepbound, including stool study, 11/12/24: BMI 34, Weight 198. Continue Zepbound, will increase to 7.5 mg subcu weekly. Tolearting significantly better than Wegovy. Increase protein intake and resistance trainng. Lost 5 lb of fat. Slightly muscle loss. DIscussed adequate hydraiton. 02/07/25: BMI 32, Weight 186. Continue Zepbound, increase to 10 mg subcu weekly. TOlerating well. 04/04/25: BMI 31, Weight 186 lb. Continue Zepbound, increase to 12.5 mg subcu weekly. Ariel Charles Smiley patients have had overall stability. We have talked about her diet, patient only eats mostly meals a day. She often skips. She reports increased supplemental ibuprofen, ibuprofen use, medically easily. She reports her activity is overall decreased. Patient plans on going on vacation the next 2 weeks Total time spent with patient was 35 minutes with over half being face to face time. Case discussed with collaborating physician Isma who reviewed the assessment and plan. Chart, medications, labs, vital signs reviewed. Dictation was accomplished with the use of [employer] voice recognition software, prone to medical misidentifications and grammatical errors. This is unintentional and the practitioner does try to identify and correct these, but some could still be present. Please do not hesitate to contact practitioner for clarification. All questions answered to patients satisfaction. Patient verbalized understanding of diagnosis and treatments explained. To call sooner prior to next visit it any questions/concerns arise. 11/11/2024 Prediabetes (ICD-10 - R73.03) 02/18/2023: weight 214.2 [...] changes. Body composition scale was reviewed at [facility]. Labs will need to be ordered. [...] no improvement on Zepbound, including stool study, 11/12/24: BMI 34, Weight 198. Continue Zepbound, will increase to 7.5 mg subcu weekly. Tolearting significantly better than Wegovy. Increase protein intake and resistance trainng. Lost 5 lb of fat. Slightly muscle loss. DIscussed adequate hydraiton. Total time spent with patient was 35 minutes with over half being face to face time. Case discussed with collaborating physician Isma who reviewed the assessment and plan. Chart, medications, labs, vital signs reviewed. Dictation was accomplished with the use of [employer] voice recognition software, prone to medical misidentifications [...] changes. Body composition scale was reviewed at [facility]. Labs will need to be ordered. [...] Dictation was accomplished with the use of [employer] voice recognition software, prone to medical misidentifications [...] changes. Body composition scale was reviewed at [facility]. Labs will need to be ordered. [...] Dictation was accomplished with the use of [employer] voice recognition software, prone to medical misidentifications and grammatical errors. This is unintentional and the practitioner does try to identify and correct these, but some could still be present. Please do not hesitate to contact practitioner for clarification. All questions answered to patients satisfaction. Patient verbalized understanding of diagnosis and treatments explained. To call sooner prior to next visit it any questions/concerns arise. 06/30/2025 Encounter for examination of blood pressure without abnormal findings (ICD-10 - Z01.30) 02/18/2023: weight 214.2 lbs, BMI 36.76Neil Banegas is a 37 year old female following [...] changes. Body composition scale was reviewed at [facility]. Labs will need to be ordered. [...] no improvement on Zepbound, including stool study, 11/12/24: BMI 34, Weight 198. Continue Zepbound, will increase to 7.5 mg subcu weekly. Tolearting significantly better than Wegovy. Increase protein intake and resistance trainng. Lost 5 lb of fat. Slightly muscle loss. DIscussed adequate hydraiton. 02/07/25: BMI 32, Weight 186. Continue Zepbound, increase to 10 mg subcu weekly. TOlerating well. 04/04/25: BMI 31, Weight 186 lb. Continue Zepbound, increase to 12.5 mg subcu weekly. Ariel Smiley patients have had overall stability. We have talked about her diet, patient only eats mostly meals a day. She often skips. She reports increased supplemental ibuprofen, ibuprofen use, medically easily. She reports her activity is overall decreased. Patient plans on going on vacation the next 2 weeks 06/30/2025: Patient's BMI is 30, weight is 177. We will continue Zepbound 12.5 mg subcu weekly. Patient is overall tolerating well. Patient is encouraged to increase her protein intake. Patient lost mostly fat mass. Patient is encouraged to increase her hydration. Congratulated on efforts. Total time spent with patient was 35 minutes with over half being face to face time. Case discussed with collaborating physician Isma who reviewed the assessment and plan. Chart, medications, labs, vital signs reviewed. Dictation was accomplished with the use of [employer] voice recognition software, prone to medical misidentifications and grammatical errors. This is unintentional and the practitioner does try to identify and correct these, but some could still be present. Please do not hesitate to contact practitioner for clarification. All questions answered to patients satisfaction. Patient verbalized understanding of diagnosis and treatments explained. To call sooner prior to next visit it any questions/concerns arise. 04/04/2025 Encounter for examination of blood pressure without abnormal findings (ICD-10 - Z01.30) 02/18/2023: weight 214.2 lbs, BMI 36.76- Bassam is a 37 year old female [...] changes. Body composition scale was reviewed at [facility]. Labs will need to be ordered. [...] no improvement on Zepbound, including stool study, 11/12/24: BMI 34, Weight 198. Continue Zepbound, will increase to 7.5 mg subcu weekly. Tolearting significantly better than Wegovy. Increase protein intake and resistance trainng. Lost 5 lb of fat. Slightly muscle loss. DIscussed adequate hydraiton. 02/07/25: BMI 32, Weight 186. Continue Zepbound, increase to 10 mg subcu weekly. TOlerating well. 04/04/25: BMI 31, Weight 186 lb. Continue Zepbound, increase to 12.5 mg subcu weekly. Ariel Smiley patients have had overall stability. We have talked about her diet, patient only eats mostly meals a day. She often skips. She reports increased supplemental ibuprofen, ibuprofen use, medically easily. She reports her activity is overall decreased. Patient plans on going on vacation the next 2 weeks Total time spent with patient was 35 minutes with over half being face to face time. Case discussed with collaborating physician Isma who reviewed the assessment and plan. Chart, medications, labs, vital signs reviewed. Dictation was accomplished with the use of [employer] voice recognition software, prone to medical misidentifications and grammatical errors. This is unintentional and the practitioner does try to identify and correct these, but some could still be present. Please do not hesitate to contact practitioner for clarification. All questions answered to patients satisfaction. Patient verbalized understanding of diagnosis and treatments explained. To call sooner prior to next visit it any questions/concerns arise. 02/07/2025 Encounter for examination of blood pressure without abnormal findings (ICD-10 - Z01.30) 02/18/2023: weight 214.2 lbs, BMI 36.76-- Bassam [...] changes. Body composition scale was reviewed at [facility]. Labs will need to be ordered. [...] no improvement on Zepbound, including stool study, 11/12/24: BMI 34, Weight 198. Continue Zepbound, will increase to 7.5 mg subcu weekly. Tolearting significantly better than Wegovy. Increase protein intake and resistance trainng. Lost 5 lb of fat. Slightly muscle loss. DIscussed adequate hydraiton. 02/07/25: BMI 32, Weight 186. Continue Zepbound, increase to 10 mg subcu weekly. TOlerating well. Total time spent with patient was 35 minutes with over half being face to face time. Case discussed with collaborating physician Isma who reviewed the assessment and plan. Chart, medications, labs, vital signs reviewed. Dictation was accomplished with the use of [employer] voice recognition software, prone to medical misidentifications and grammatical errors. This is unintentional and the practitioner does try to identify and correct these, but some could still be present. Please do not hesitate to contact practitioner for clarification. All questions answered to patients satisfaction. Patient verbalized understanding of diagnosis and treatments explained. To call sooner prior to next visit it any questions/concerns arise. Plan Of Treatment Pending Test Test Name Order Date EKG 01/21/2023 COMPREHENSIVE METABOLIC PANEL 02/07/2025 COMPREHENSIVE METABOLIC PANEL 04/27/2024 CBC (INCLUDES DIFF/PLT) 04/27/2024 CBC (INCLUDES DIFF/PLT) 02/07/2025 HEMOGLOBIN A1c 02/07/2025 HEMOGLOBIN A1c 04/27/2024 INSULIN 04/27/2024 INSULIN 02/07/2025 TSH 04/27/2024 TSH W/REFLEX TO FT4 02/07/2025 Next Appt Details Provider Name:ROSY SHARMA, 08/29/2025 09:30:00 AM, [address], [place], [address], Insurance Providers Payer Name Payer Address Payer Phone Subscriber Number Group Number Insured Name Patient Relationship to Insured Coverage Start Date Coverage End Date [facility] [address] [place] [address] [id number] Bassam Hernández Self - patient is the insured Medications Administered Medication Instructions Date of Administration Dosage Notes Semaglutide 07/08/2023 lot# [id number] 0.25mg Semaglutide 07/15/2023 lot#[id number] 0.25mg Semaglutide 07/22/2023 lot#[id number] 0.25mg Medical (General) History Medical History History ICD Code Prediabetes R73.03 Obesity (BMI 30-39.9) E66.9
== END 2025-08-08 09:34 | disposition home or self-care (01) ==
LOC: HO.MAMMO 09:33
PROVIDERS: PCP Internal Medicine; Visit Provider Internal Medicine
DX: Z12.31 Encounter for screening mammogram for malignant neoplasm of breast (principal)
CPT/HCPCS: 77063; 77067